=== PATIENT | female | born 1955 | race Caucasian/White ===

== ENCOUNTER 2022-01-16 10:26 | Outpatient (REF) | payer MEDICARE, SELFPAY ==
[2022-01-16 13:42] LABS: Estimated Average Glucose 171 mg/dL; Hemoglobin A1c % 7.6 %
== END 2022-01-16 10:27 | disposition home or self-care (01) ==
LOC: HO.MANLDS 10:26
PROVIDERS: PCP Internal Medicine; Visit Provider Internal Medicine
DX: E11.9 Type 2 diabetes mellitus without complications (principal)
CPT/HCPCS: 36415; 83036

== ENCOUNTER 2022-04-30 07:58 | Outpatient (REF) | payer MEDICARE, SELFPAY ==
[2022-04-30 11:37] LABS: Estimated Average Glucose 197 mg/dL; Hemoglobin A1c % 8.5 %
== END 2022-04-30 07:59 | disposition home or self-care (01) ==
LOC: HO.MANLDS 07:58
PROVIDERS: Visit Provider Internal Medicine
DX: E11.9 Type 2 diabetes mellitus without complications (principal)
CPT/HCPCS: 36415; 83036

== ENCOUNTER 2022-08-13 09:32 | Outpatient (REF) | payer MEDICARE, SELFPAY ==
[2022-08-13 11:48] LABS: Estimated Average Glucose 186 mg/dL; Hemoglobin A1c % 8.1 %
== END 2022-08-13 09:33 | disposition home or self-care (01) ==
LOC: HO.MANLDS 09:32
PROVIDERS: Visit Provider Internal Medicine
DX: E11.9 Type 2 diabetes mellitus without complications (principal)
CPT/HCPCS: 36415; 83036

== ENCOUNTER 2022-08-15 11:06 | Outpatient (REF) | payer MEDICARE, SELFPAY ==
[2022-08-15 14:25] LABS: Anion Gap 16 (12-20); Blood Urea Nitrogen 13 mg/dL (9-16); Calcium 9.5 mg/dL (8.4-10.2); Carbon Dioxide 27 mmol/L (22-29); Chloride 102 mmol/L (96-108); Estimated Glomerular Filt Rate 57; Glucose Random 225 mg/dL (60-115); Potassium 4.6 mmol/L (3.3-5.1); Sodium 140 mmol/L (135-145)
== END 2022-08-15 11:07 | disposition home or self-care (01) ==
LOC: HO.MANLDS 11:06
PROVIDERS: Visit Provider Internal Medicine
DX: I10 Essential (primary) hypertension (principal)
CPT/HCPCS: 36415; 80048

== ENCOUNTER 2022-09-17 09:37 | Outpatient (REF) | payer MEDICARE, SELFPAY ==
[2022-09-17 12:04] LABS: Estimated Average Glucose 171 mg/dL; Hemoglobin A1c % 7.6 %
[2022-09-17 12:09] LABS: Creatinine Urine 79.62 mg/dL; Microalbum/Creatinine Ratio Ur 12.5 ug/mg cr
[2022-09-17 12:23] LABS: Alanine Aminotransferase 25 U/L (0-31); Albumin Level 4.2 g/dL (3.5-5.0); Alkaline Phosphatase 62 U/L (39-117); Anion Gap 14 (12-20); Aspartate Amino Transferase 16 U/L (5-31); Bilirubin Total 1.3 mg/dL (0.0-1.0); Blood Urea Nitrogen 19 mg/dL (9-16); Calcium 9.6 mg/dL (8.4-10.2); Carbon Dioxide 27 mmol/L (22-29); Chloride 104 mmol/L (96-108); Cholesterol 289 mg/dL; Estimated Glomerular Filt Rate 58; Glucose Random 143 mg/dL (60-115); HDL Cholesterol 42 mg/dL; LDL Cholesterol Calculated 193 mg/dl; Potassium 4.6 mmol/L (3.3-5.1); Sodium 140 mmol/L (135-145); Triglycerides 274 mg/dL
== END 2022-09-17 09:38 | disposition home or self-care (01) ==
LOC: HO.MANLDS 09:37
PROVIDERS: Visit Provider Internal Medicine
DX: E11.9 Type 2 diabetes mellitus without complications (principal)
CPT/HCPCS: 36415; 80053; 80061; 82043; 83036

== ENCOUNTER 2022-12-07 09:51 | Outpatient (REF) | payer MEDICARE, SELFPAY ==
[2022-12-07 12:11] LABS: Estimated Average Glucose 197 mg/dL; Hemoglobin A1c % 8.5 %
== END 2022-12-07 09:52 | disposition home or self-care (01) ==
LOC: HO.MANLDS 09:51
PROVIDERS: Visit Provider Internal Medicine
DX: E11.9 Type 2 diabetes mellitus without complications (principal)
CPT/HCPCS: 36415; 83036

== ENCOUNTER 2023-03-13 10:11 | Outpatient (REF) | payer MEDICARE, SELFPAY ==
[2023-03-13 11:46] LABS: Estimated Average Glucose 154 mg/dL
[2023-03-13 12:29] LABS: Creatinine Urine 77.12 mg/dL; Microalbum/Creatinine Ratio Ur 10.3 ug/mg cr
[2023-03-13 12:44] LABS: Alanine Aminotransferase 21 U/L (0-31); Albumin Level 4.1 g/dL (3.5-5.0); Alkaline Phosphatase 56 U/L (39-117); Anion Gap 13 (12-20); Aspartate Amino Transferase 15 U/L (5-31); Bilirubin Total 1.3 mg/dL (0.0-1.0); Blood Urea Nitrogen 11 mg/dL (9-16); Calcium 9.3 mg/dL (8.4-10.2); Carbon Dioxide 27 mmol/L (22-29); Chloride 104 mmol/L (96-108); Estimated Glomerular Filt Rate 59; Glucose Random 119 mg/dL (60-115); Potassium 5.1 mmol/L (3.3-5.1); Sodium 139 mmol/L (135-145)
== END 2023-03-13 10:12 | disposition home or self-care (01) ==
LOC: HO.MANLDS 10:11
PROVIDERS: Visit Provider Internal Medicine
DX: E11.9 Type 2 diabetes mellitus without complications (principal)
CPT/HCPCS: 36415; 80053; 82043; 83036

== ENCOUNTER 2023-08-07 09:16 | Outpatient (REF) | payer MEDICARE, SELFPAY ==
[2023-08-07 14:09] LABS: Estimated Average Glucose 148 mg/dL; Hemoglobin A1c % 6.8 % (<6.0)
[2023-08-07 14:54] LABS: Alanine Aminotransferase 20 U/L (0-31); Albumin Level 4.2 g/dL (3.5-5.0); Alkaline Phosphatase 50 U/L (39-117); Anion Gap 13 (12-20); Aspartate Amino Transferase 20 U/L (5-31); Bilirubin Total 1.6 mg/dL (0.0-1.0); Blood Urea Nitrogen 13 mg/dL (9-16); Calcium 9.4 mg/dL (8.4-10.2); Carbon Dioxide 26 mmol/L (22-29); Chloride 103 mmol/L (96-108); Cholesterol 295 mg/dL (<200); Estimated Glomerular Filt Rate 53; Glucose Random 150 mg/dL (60-115); HDL Cholesterol 41 mg/dL (>40); LDL Cholesterol Calculated 201 mg/dL (<100); Potassium 4.3 mmol/L (3.3-5.1); Sodium 138 mmol/L (135-145); Total Protein 7.3 g/dL (6.5-8.0); Triglycerides 268 mg/dL (<150)
== END 2023-08-07 09:17 | disposition home or self-care (01) ==
LOC: HO.MANLDS 09:16
PROVIDERS: Visit Provider Internal Medicine
DX: E11.9 Type 2 diabetes mellitus without complications (principal)
CPT/HCPCS: 36415; 80053; 80061; 83036

== ENCOUNTER 2023-08-14 09:07 | Outpatient (REF) | payer MEDICARE, SELFPAY ==
--- NOTE | ~2023-08-14 | XR_ITS ---
EXAMINATION: XR SHOULDER, RIGHT CLINICAL INFORMATION: Pain in the right shoulder COMPARISON: None available. TECHNIQUE: AP external rotation, Grashey, scapular Y, and axillary views of the right shoulder. FINDINGS: There is no evidence of fracture dislocation in the right shoulder. Glenohumeral joint is preserved. There are mild changes of osteoarthritis in right acromioclavicular joint. Soft tissues are unremarkable. XR/XR shoulder RT min 2V IMPRESSION: Mild degenerative changes of the right acromioclavicular joint.
== END 2023-08-14 09:08 | disposition home or self-care (01) ==
LOC: HO.XRAY 09:07
PROVIDERS: PCP Internal Medicine; Visit Provider Internal Medicine
DX: M25.511 Pain in right shoulder (principal)
CPT/HCPCS: 73030

== ENCOUNTER 2023-11-15 07:59 | Outpatient (REF) | payer MEDICARE, SELFPAY ==
[2023-11-15 13:38] LABS: Estimated Average Glucose 171 mg/dL; Hemoglobin A1c % 7.6 % (<6.0)
== END 2023-11-15 08:00 | disposition home or self-care (01) ==
LOC: HO.MANLDS 07:59
PROVIDERS: Visit Provider Internal Medicine
DX: E11.9 Type 2 diabetes mellitus without complications (principal)
CPT/HCPCS: 36415; 83036

== ENCOUNTER 2024-02-17 08:26 | Outpatient (REF) | payer MEDICARE, SELFPAY ==
[2024-02-17 13:53] LABS: Alanine Aminotransferase 22 U/L (0-31); Albumin Level 4.1 g/dL (3.5-5.0); Alkaline Phosphatase 54 U/L (39-117); Anion Gap 12 (12-20); Aspartate Amino Transferase 16 U/L (5-31); Bilirubin Total 0.9 mg/dL (0.0-1.0); Blood Urea Nitrogen 11 mg/dL (9-16); Calcium 9.2 mg/dL (8.4-10.2); Carbon Dioxide 26 mmol/L (22-29); Chloride 104 mmol/L (96-108); Cholesterol 282 mg/dL (<200); Estimated Glomerular Filt Rate > 60; Glucose Random 215 mg/dL (60-115); HDL Cholesterol 40 mg/dL (>40); LDL Cholesterol Calculated 190 mg/dL (<100); Sodium 138 mmol/L (135-145); Total Protein 7.3 g/dL (6.5-8.0); Triglycerides 264 mg/dL (<150)
== END 2024-02-17 08:27 | disposition home or self-care (01) ==
LOC: HO.MANLDS 08:26
PROVIDERS: Visit Provider Internal Medicine
DX: E11.9 Type 2 diabetes mellitus without complications (principal)
CPT/HCPCS: 36415; 80053; 80061

== ENCOUNTER 2024-05-27 08:41 | Outpatient (REF) | payer MEDICARE, SELFPAY ==
[2024-05-27 14:09] LABS: Estimated Average Glucose 163 mg/dL; Hemoglobin A1c % 7.3 % (<6.0)
== END 2024-05-27 08:42 | disposition home or self-care (01) ==
LOC: HO.MANLDS 08:41
PROVIDERS: Visit Provider Internal Medicine
DX: E11.9 Type 2 diabetes mellitus without complications (principal)
CPT/HCPCS: 36415; 83036

== ENCOUNTER 2024-09-02 08:27 | Outpatient (REF) | payer MEDICARE, SELFPAY ==
[2024-09-02 14:18] LABS: Estimated Average Glucose 148 mg/dL; Hemoglobin A1C 285.8594 umol/L; Hemoglobin A1c % 6.8 % (<6.0); Total Hemoglobin (HGBA1C) 5657.8737 umol/L
== END 2024-09-02 08:28 | disposition home or self-care (01) ==
LOC: HO.MANLDS 08:27
PROVIDERS: Visit Provider Internal Medicine
DX: E11.9 Type 2 diabetes mellitus without complications (principal)
CPT/HCPCS: 36415; 83036

== ENCOUNTER 2024-12-28 07:54 | Outpatient (REF) | payer MEDICARE, SELFPAY ==
--- OUTSIDE RECORDS SUMMARY | 2024-12-28 07:59 | XMS_ITS | Data Portability ---
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 REVIEW OF PRIOR EXTERNAL NOTES/RESULTS, ORDERING OF TEST(S) CATEGORY 2. 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) MDM MODERATE MUST MEET 2 OUT OF 3 ELEMENTS: PROBLEMS, DATA OR RISK ELEMENT 1: PROBLEMS ADDRESSED 1 OR MORE CHRONIC ILLNESS WITH EXACERBATION OR 2 OR MORE STABLE CHRONIC ILLNESSES OR 1 UNDIAGNOSED NEW PROBLEM OR 1 ACUTE ILLNESS W/SYMPTOMS OR 1 ACUTE COMPLICATED INJURY ELEMENT 2: DATA MUST MEET 1 OF 3 CATEGORIES CATEGORY 1: REVIEW OF PRIOR EXTERNAL NOTES, REVIEW OF RESULTS, ORDERING OF EACH TEST, ASSESSMENT REQUIRING INDEPENDENT HISTORIAN OR CATEGORY 2: INDEPENDENT INTERPRETATION OF TESTS BY ANOTHER PHYSICIAN OR SPECIALIST OR CATEGORY 3: DISCUSSION OF MGT OR TEST INTERPRETATION W/EXTERNAL PHYSICIAN OR SPECIALIST ELEMENT 3: RISK RISK OF COMPLICATIONS AND/OR MORBIDITY OR MORTALITY OF PATIENT MANAGEMENT PROVIDER MUST THOROUGHLY DOCUMENT EACH ELEMENT THAT IS COVERED Not available 11/20/2023 10:19:57 02/21/2024 02/21/2024 [id number] [place] [id number]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 MODERATE MUST MEET 2 OUT OF 3 ELEMENTS: PROBLEMS, DATA OR RISK ELEMENT 1: PROBLEMS ADDRESSED 1 OR MORE CHRONIC ILLNESS WITH EXACERBATION OR 2 OR MORE STABLE CHRONIC ILLNESSES OR 1 UNDIAGNOSED NEW PROBLEM OR 1 ACUTE ILLNESS W/SYMPTOMS OR 1 ACUTE COMPLICATED INJURY ELEMENT 2: DATA MUST MEET 1 OF 3 CATEGORIES CATEGORY 1: REVIEW OF PRIOR EXTERNAL NOTES, REVIEW OF RESULTS, ORDERING OF EACH TEST, ASSESSMENT REQUIRING INDEPENDENT HISTORIAN OR CATEGORY 2: INDEPENDENT INTERPRETATION OF TESTS BY ANOTHER PHYSICIAN OR SPECIALIST OR CATEGORY 3: DISCUSSION OF MGT OR TEST INTERPRETATION W/EXTERNAL PHYSICIAN OR SPECIALIST ELEMENT 3: RISK RISK OF COMPLICATIONS AND/OR MORBIDITY OR MORTALITY OF PATIENT MANAGEMENT PROVIDER MUST THOROUGHLY DOCUMENT EACH ELEMENT THAT IS COVERED Not available 02/21/2024 10:27:47 06/01/2024 06/01/2024 [id number] [place] [id number]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 MODERATE MUST MEET 2 OUT OF 3 ELEMENTS: PROBLEMS, DATA OR RISK ELEMENT 1: PROBLEMS ADDRESSED 1 OR MORE CHRONIC ILLNESS WITH EXACERBATION OR 2 OR MORE STABLE CHRONIC ILLNESSES OR 1 UNDIAGNOSED NEW PROBLEM OR 1 ACUTE ILLNESS W/SYMPTOMS OR 1 ACUTE COMPLICATED INJURY ELEMENT 2: DATA MUST MEET 1 OF 3 CATEGORIES CATEGORY 1: REVIEW OF PRIOR EXTERNAL NOTES, REVIEW OF RESULTS, ORDERING OF EACH TEST, ASSESSMENT REQUIRING INDEPENDENT HISTORIAN OR CATEGORY 2: INDEPENDENT INTERPRETATION OF TESTS BY ANOTHER PHYSICIAN OR SPECIALIST OR CATEGORY 3: DISCUSSION OF MGT OR TEST INTERPRETATION W/EXTERNAL PHYSICIAN OR SPECIALIST ELEMENT 3: RISK RISK OF COMPLICATIONS AND/OR MORBIDITY OR MORTALITY OF PATIENT MANAGEMENT PROVIDER MUST THOROUGHLY DOCUMENT EACH ELEMENT THAT IS COVERED Not available 06/01/2024 10:31:40 09/07/2024 09/07/2024 [id number] [place] [id number]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 MODERATE MUST MEET 2 OUT OF 3 ELEMENTS: PROBLEMS, DATA OR RISK ELEMENT 1: PROBLEMS ADDRESSED 1 OR MORE CHRONIC ILLNESS WITH EXACERBATION OR 2 OR MORE STABLE CHRONIC ILLNESSES OR 1 UNDIAGNOSED NEW PROBLEM OR 1 ACUTE ILLNESS W/SYMPTOMS OR 1 ACUTE COMPLICATED INJURY ELEMENT 2: DATA MUST MEET 1 OF 3 CATEGORIES CATEGORY 1: REVIEW OF PRIOR EXTERNAL NOTES, REVIEW OF RESULTS, ORDERING OF EACH TEST, ASSESSMENT REQUIRING INDEPENDENT HISTORIAN OR CATEGORY 2: INDEPENDENT INTERPRETATION OF TESTS BY ANOTHER PHYSICIAN OR SPECIALIST OR CATEGORY 3: DISCUSSION OF MGT OR TEST INTERPRETATION W/EXTERNAL PHYSICIAN OR SPECIALIST ELEMENT 3: RISK RISK OF COMPLICATIONS AND/OR MORBIDITY OR MORTALITY OF PATIENT MANAGEMENT PROVIDER MUST THOROUGHLY DOCUMENT EACH ELEMENT THAT IS COVERED Not available 09/07/2024 11:11:19 Plan of Treatment Reminders Order Date Submit Date Provider Last Modified By Organization Details Last Modified Time Details Appointments FOLLOW UP 15 2024 12:00P M DR BOOKER Not available Not available Not available Lab hemoglobi n A1c, QN, blood 2023 024 [facility], [address] [place] [address], [address], 02/21/2024 10:39:56 CMP, serum or plasma 2022 023 [facility], [place], [address], 09/11/2023 11:48:47 CBC 2022 023 [facility], [place], [address], 09/11/2023 11:48:48 vitamin D, 25-hydrox y, total, serum 2022 023 [facility], [place], [address], 09/11/2023 11:48:48 HbA1c (hemoglob in A1c), blood 2022 023 [facility], [place], [address], 11/18/2023 11:12:13 lipid panel, blood 2022 023 [facility], [place], [address], 09/11/2023 11:48:48 CBC w/ auto diff 2022 023 [facility], [place], [address], 09/11/2023 11:48:[address] referral 2022 023 [facility], [address] [facility], [place], [address], 09/16/2023 09:02:00 Procedures None recorded. Surgeries None recorded. Imaging None recorded. Medication Orders Ventolin HFA 90 mcg/actua tion aerosol inhaler [address] [id number], [address], [place], [phone], 06/01/2024 10:30:39 triamtere ne 37.5 mg-hydroc hlorothia zide 25 mg tablet [address] [id number], [address], [place], [phone], 11/20/2023 10:22:10 oxycodone -acetamin ophen 5 mg-325 mg tablet 2022 023 [facility][id number], [address], [place], [phone], 11/20/2023 09:42:04 Patient TargetsNo targets recorded. Patient Instructions Encounter Date Encounter Id Patient Instructions Last Modified By Organization Details Last Modified Time 11/20/2023 [id number] pulse oximetry* Not available 11/20/2023 10:22:06 leg and ankle edema: care instructions Not available 11/20/2023 10:22:03 02/21/2024 [id number] pulse oximetry* Not available 02/21/2024 10:30:17 06/01/2024 [id number] leg and ankle edema: care instructions Not available 06/01/2024 10:30:27 learning about type 2 diabetes Not available 06/01/2024 10:30:27 type 2 diabetes: care instructions Not available 06/01/2024 10:30:26 chronic obstructive pulmonary disease (COPD): care instructions Not available 06/01/2024 10:30:26 learning about copd and how to prevent lung infections Not available 06/01/2024 10:30:27 09/07/2024 [id number] chronic obstructive pulmonary disease (COPD): care instructions [email or web address] Not available 09/07/2024 11:07:15 learning about copd and how to prevent lung infections Not available 09/07/2024 11:07:15 pulse oximetry* WALKER Not available 09/07/2024 11:20:47 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 Oswald ateral tinnitus Referring Physician: Gary Booker, Internal Medicine, Encounter Date: 09/11/2023 Results Created Date Observation Date Name Description Value Unit Range Abnormal Flag Note LastModifiedBy Organization Detail LastModifiedTime 08/12/2008/12/2023 pulse oxime try* Result 98% Not Available [facility] [address], [place], [address], 08/02/2023 09:04:20 11/20/19 24 11/20/2023 pulse oxime try* Result 95% Not Available [facility] [address], [place], [address], 11/15/2023 16:23:20 02/21/20 24 02/21/2024 pulse oxime try* Result 96% Not Available [facility] [address], [place], [address], 02/19/2024 12:19:03 09/07/20 24 09/07/2024 pulse oxime try* Result 97 Not Available [facility] [address] [facility] [address], [place], [address], 09/01/2024 10:47:03 08/15/20 23 08/14/2023 XR, ian chase, 2 or more view No observ ation record ed. [facility] (Medical Records) [address] [place], [address], 09/11/2023 11:33:32 Result Notes None recorded. Problems Name Problem SNOMED Code Status Onset Date Resolution Date Notes Provider Name and Address Organization Details Recorded Time Asthma 535378321 Active 2019 [facility] 0 09:04:12 Diabetes mellitus 08316707 Completed 201908/10/[address] [facility] Internal [facility] 0 09:04:26 Type 2 diabetes mellitus 03082063 Active 2019 [facility] 0 09:04:36 Allergic rhinitis 81899942 Active 2019 [facility] 0 09:04:53 Gastroes ophageal reflux disease 568676125 Active 2019 [facility] 0 09:05:01 Hyperlip idemia 24728861 Active [address] [facility] 0 09:05:20 Obesity 725389322 Active 2019 [facility] 0 09:10:16 Urolithi asis 01437914 Active 2019 [facility] 0 09:10:27 Knee pain Active [address] [facility] 0 09:10:39 Hyperten sive disorder 62984145 Active 2021 Gary Booker DO [address] [place] [address], [address], [facility] 2 14:38:39 Ganglion cyst of right hand 36387599647 9107 Active 2022 Gary Booker DO [address] [place] [address], [address], [facility] 3 10:18:31 Benign paroxysm al position al vertigo 212886606 Active 2022 Gary Booker, DO [address] [place] [address], [address], [facility] 3 11:41:30 Benign paroxysm al position al vertigo 059646168 Active 2022 Gary Booker, DO [address] [place] [address], [address], [facility] 3 11:46:15 Pain of right shoulder joint 00606449304 960599 Active 2022 Gary Booker, [address] [place] [address], [address], [facility] 3 11:49:52 Bilatera l tinnitus 15473712957 02 Active 2022 Gary Booker DO [address] [place] [address], [address], [facility] 3 11:36:01 Rupture of rotator cuff of right shoulder 57598619495 425956 Active 2022 Gary Booker DO [address] [place] [address], [address], [facility] 3 11:43:41 Neuropat hy due to diabetes mellitus 703345711 Active 2023 Gary Booker DO [address] [place] [address], [address], [facility] 4 10:19:50 Edema of lower extremit y 946703131 Active 2023 Gary Booker DO [address] [place] [address], [address], [facility] 4 10:20:19 Chronic obstruct vanessa pulmonar y disease 17021310 Active 2023 Gary Booker DO [address] [place] [address], [address], [facility] 4 10:30:17 Onychomy cosis of toenails 619813806 Active 2023 Gary Booker, DO [address] [facility], [place], [address], [facility] 4 11:04:45 Problem Notes None recorded. Procedures Surgical History Date Name Laterality Status Provider Name and Address Organization Details Recorded Time colonoscopy completed Lathaalessandra Lamar [facility] 08/10/2020 09:15:24 [facility]pal tunnel surgery [facility] 09:15:39 Imaging Results Imaging Date Name Status LastModified by Organiz ation Details LastModified Time 08/14/2023 XR, shoulder, 2 or more view completed [facility] (Medical Records) [address] [place] [address], [address], 09/11/2023 11:33:32 Procedure Notes None recorded. Medical Equipment None Reported. Allergies Allergen ID Allergen Name Allergen Category Reaction Reaction Severity Criticality Documentation Date Start Date Code Code System Note Provider Name and Address Organization Details Recorded Time 4136 lemon extract food anaphylax is Not available Not available 08/10/2020 48734 91 RxNorm Latha Lamar [facility] 0 09:11:12 4137 cultivate d mushroom extract food Not available Not available Not available 08/10/2020 70454 17 RxNorm Latha Arguetaicktiarra [facility] 0 09:11:26 4138 amitripty line medicatio n Not available Not available Not available 08/10/2020 704 RxNorm Latha Arguetaicktiarra [facility] 0 09:12:03 4139 atorvasta tin medicatio n Not available Not available Not available 08/10/2020 00392 RxNorm Latha Balicktiarra [facility] 0 09:12:13 4140 cromolyn medicatio n Not available Not available Not available 08/10/2020 23484 RxNorm Latha Balicki fred, [facility] Internal [facility] 0 09:12:22 4141 Flovent medicatio n Not available Not available Not available 08/10/2020 65041 2 RxNorm Latha Kendallicki null, [facility] 0 09:12:31 4142 hyoscyami ne medicatio n Not available Not available Not available 08/10/2020 27314 0 RxNorm Lathaalessandra Arguetaicki fred, [facility] 0 09:12:43 4143 pravastat in medicatio n Not available Not available Not available 08/10/2020 58448 Rx[facility] 0 09:12:53 4144 Pulmicort medicatio n Not available Not available Not available 08/10/2020 37557 7 [facility] 0 09:13:02 4145 Substance with sulfonami de structure and antibacte rial mechanism of action (substanc e) medicatio n Not available Not available Not available 08/10/2020 65311 8003 [facility]ED [facility] 0 09:13:09 4146 theophyll ine medicatio n Not available Not available Not available 08/10/2020 17840 RxNorm [facility] 0 09:13:17 4147 Zetia medicatio n Not available Not available Not available 08/10/2020 88593 9 RxNorm Latha Kendallicki fred, [facility] Internal [facility] 0 09:13:27 Medications Name Sig Start Date Stop Date Status Note LastModified by Organization Details LastModified Time Prescriptio n - Prior Authorizati on Request 06/01 completed Not Available Not Available Not Available Singulair 10 mg tablet TAKE 1 TABLET BY MOUTH EVERY DAY active Not Available Not Available No t Available azithromyci n 250 mg tablet TAKE 2 TABLETS (500 MG) BY ORAL ROUTE ONCE DAILY FOR 1 DAY THEN 1 TABLET (250 MG) BY ORAL ROUTE ONCE DAILY FOR 4 DAYS 12/11 completed Not Available Not Available Not Available glipizide 10 mg tablet TAKE 1 TABLET BY MOUTH EVERY DAY active Not Available Not Available No t Available meclizine 12.5 mg tablet TAKE 1 TABLET BY MOUTH THREE TIMES DAILY FOR 10 DAYS NEEDED active Not Available Not Available No t Available aspirin 81 mg tablet,cee yed release TAKE 1 TABLET BY MOUTH ONCE A DAY FOR 2 WEEKS POST SURGERY active Not Available Not Available No t Available tramadol 50 mg tablet TAKE 1 TABLET BY MOUTH EVERY 6 HOURS FOR 7 DAYS NEEDED FOR SHOULDER PAIN active Not Available Not Available No t Available meloxicam 7.5 mg tablet 11/20 completed Not Available Not Available Not Available oxycodone-a cetaminophe n 5 mg-325 mg tablet TAKE 1 TABLET BY MOUTH TWICE DAILY FOR 7 DAYS NEEDED 11/20 completed Not Available Not Available Not Available metformin 1,000 mg tablet TAKE 2 TABLETS BY MOUTH EVERY MORNING THEN TAKE 1 TABLET BY MOUTH IN THE AFTERNOON 01/12 completed Not Available Not Available Not Available triamterene 37.5 mg-hydrochl orothiazide 25 mg tablet TAKE 1 TABLET BY MOUTH EVERY DAY active Not Available Not Available No t Available methylpredn isolone 4 mg tablets in a dose pack FOLLOW PACKAGE DIRECTION S 12/11 completed Not Available Not Available Not Available Ventolin HFA 90 mcg/actuati on aerosol inhaler INHALE 2 PUFFS BY MOUTH EVERY 4 HOURS NEEDED active Not Available Not Available No t Available oxycodone 5 mg tablet TAKE 1 TABLET BY MOUTH EVERY [address] WHILE TAKING THIS MEDICATIO N 06/01 completed Not Available Not Available Not Available Januvia 25 mg tablet TAKE 1 TABLET BY MOUTH EVERY DAY active Not Available Not Available No t Available Trulicity 1.5 mg/0.5 mL subcutaneou s pen injector ADMINISTE R 3 MG UNDER THE SKIN EVERY WEEK 06/01 completed Not Available Not Available Not Available Trulicity 0.75 mg/0.5 mL subcutaneou s pen injector ADMINISTE R 0.75 MG UNDER THE SKIN EVERY WEEK 05/04 completed Not Available Not Available Not Available Trulicity 3 mg/0.5 mL subcutaneou s pen injector ADMINISTE R 3 MG UNDER THE SKIN EVERY WEEK active Not Available Not Available No t Available Vitals Date Recorded Body height Heart rate Oxygen saturation Oxygen saturation in Arterial blood by Pulse oximetry Systolic blood pressure Diastolic blood pressure Provider Name and Address Organization Details Last Updated DateTime 4 157.48 cm 77 /min 95 % 95 % 156 mm[Hg] 86 mm[Hg] Gary ToshaNatacha Booker, DO [address] [place], [address], [facility] 4 09:40:42 Date Recorded Body height Body mass index (BMI) Body weight Heart rate Oxygen saturation Oxygen saturation in Arterial blood by Pulse oximetry Systolic blood pressure Diastolic blood pressure Provider Name and Address Organization Details Last Updated DateTime 4 157.48 cm 37.3 kg/m2 29826.3 1 g 70 /min 96 % 96 % 120 mm[Hg] 80 mm[Hg] Lula Riley [facility] 4 10:04:00 Date Recorded Body height Body mass index (BMI) Body weight Heart rate Oxygen saturation Oxygen saturation in Arterial blood by Pulse oximetry Systolic blood pressure Diastolic blood pressure Provider Name and Address Organization Details Last Updated DateTime 4 157.48 cm 36.7 kg/m2 94575.2 7 g 82 /min 97 % 97 % 142 mm[Hg] 80 mm[Hg] Favian Frederick [facility] 4 10:09:15 Date Recorded Body height Body mass index (BMI) Body weight Heart rate Oxygen saturation Oxygen saturation in Arterial blood by Pulse oximetry Systolic blood pressure Diastolic blood pressure Provider Name and Address Organization Details Last Updated DateTime 4 157.48 cm 36.9 kg/m2 59118.6 6 g 83 /min 97 % 97 % 154 mm[Hg] 70 mm[Hg] Lula Riley [facility] 4 10:44:29 Date Recorded Systolic blood pressure Diastolic blood pressure Provider Name and Address Organization Details Last Updated DateTime 09/07/2024 138 mm[Hg] 72 mm[Hg] Gary Booker, DO [address] [place], [address], [facility] 09/07/2024 11:11:07 Social History Question Answer Notes LastModified by Organizat ion Details LastModified Time Tobacco Smoking Status Never Smoker Latha Arguetawolf [facility] 08/10/2020 09:13:50 What Was The Date Of Your Most Recent Tobacco Screening? 09/07/2024 [email or web address] Information not available 09/07/2024 Do You Or Have You Ever Used Any Other Forms Of Tobacco Or Nicotine? No [email or web address] Information not available 04/30/2022 Sex: Unknown Functional Status None recorded. Mental Status None recorded. Family History Relationship Description Onset Age of this Age Resolved Age Notes LastModified by Organization Details LastModified Time Sister Malignant neoplastic disease [email or web address] Not available 2019 09:14:02 Sister Diabetes mellitus [email or web address] Not available 2019 09:14:14 Sister Hypertensive disorder tbalicki Not available 2019 09:14:35 Sister Leukemia 66 [email or web address] Not available 1 10:15:55 Brother Hypertensive disorder tbalicki Not available 2019 09:14:35 Brother Diabetes mellitus tbalicki Not available 2019 09:14:44 Medical History No medical history recorded. Gynecological HistoryNo gynecological history recorded. Obstetrics History GPAL:G 0 P 0 0 0 0 Past Encounters Encounter ID Performer Location Encounter Start Date Encounter Closed Date Diagnosis/Indication Diagnosis SNOMED-CT Code Diagnosis ICD10 Code Diagnosis Note [id number] KULDEEP CORREA [facility] Internal [facility] [address],[place] [address] 08/12/2020 09:55:27 08/12/2020 10:43:37 Asthma 495378843 J45.909 stable Type 2 deborah betes mellitus 03610166 E11.9 will check BW as she is due, need to see if medication s need to be adjusted Hyperlipidemia 31741789 E78.5 needs Bw check, has not had Bw checked in a few years [id number] KULDEEP CORREA [facility] [address],[place] [address] 01/04/2021 09:28:17 01/04/2021 10:18:34 Asthma 190049392 J45.909 stable no interventi on needed at this time Type 2 deborah betes mellitus 07905091 E11.9 will check BW as she is due, need to see if medication s need to be adjusted Neuropathy due to diabetes mellitus 646474583 E13.40 mild intermitte nt diarrhea Diarrhea 58217587 R19.7 the patient refused any interventi ons at this time [id number] KULDEEP CORREA [facility] Medicine [address] [facility] [address] [address] 04/07/2021 09:40:40 04/07/2021 10:06:56 Type 2 diabetes mellitus 45825198 E11.9 will check BW as she is due, need to see if medication s need to be adjusted Loss of hair 525667155 L 65.9 discussed with patientnot interested in additional lab worktold her she could use a supplement [id number] KULDEEP CORREA [facility] Internal Medicine [address],[place] [address] 07/12/2021 08:11:15 07/12/2021 11:49:24 Type 2 diabetes mellitus 86630517 E11.9 will recheck in 3 mowill talk to her sister about januvia which she uncertain she wants to takewill switch out the metformin due to diarrheawi ll adjust medication [id number] Gary Booker DO [facility] Internal Medicine [address],[place] [address] 01/12/2022 14:19:53 01/12/2022 16:17:06 Asthma 181373568 J45.909 Gastroesop hageal reflux disease 725991897 K21.9 Type 2 deborah josselin mellitus 26956694 E11.9 needs a1c done NOTE she has had noted side effects from the metformin namdely the diarrhea and also her foot pain stoppipng the metformin stopped the foot apin this is not a neuropathy !!!! Osteopenia 902375093 M85 .80 will need bone scan Metformin adverse reaction 706348785 T38.3X5A this is not her diabetes this is from the metformin side effect !!!! [id number] Gary Booker DO [facility] Internal Medicine [address],[place] [address] 04/30/2022 10:39:23 04/30/2022 14:12:40 Hypertensive disorder 06562708 I10 seems to be stable and is doing ok Asthma 329196214 J45.90 9 had a hard time with the pollen Type 2 deborah betes mellitus 86253359 E11.9 just had a1c drawn so is pending if increased we willconsid er increasing glip or trulicity but not going back to metformin Active or passive immunization 746172190 Z23 patient advised she is due for tdap, pneu 13 & 23, & shingles) Osteopenia 872811361 M85 .80 will need bone scan Advance care planning 71 3386317 Z71.89 done Depression screening 171 441408 Z13.31 PHQ-9 score of 4 [id number] Gary Booker [facility] Internal Medicine [address],[place] [place] [address] 08/15/2022 10:04:33 08/15/2022 12:18:36 Hypertensive disorder [id number] I10 seems to be stable and is doing ok Asthma 494679710 J45.90 9 had a hard time with the pollen Gastroesop hageal reflux disease 130568843 K21.9 Type 2 deborah betes mellitus 63777475 E11.9 just had a1c drawn so is pending if increased we will consider increasing glip or trulicity but not going back to metformin Screening mammography 24 928340 Z12.31 Advance care planning 71 5471072 Z71.89 done Osteopenia 837072663 M85 .80 will need bone scan [id number] Gary Booker [facility] Internal Medicine [address] [facility],[place] [address] 12/11/2022 09:41:42 12/11/2022 14:03:47 Hypertensive disorder 59542522 I10 seems to be stable and is doing ok Asthma 835084689 J45.90 9 had a hard time with the pollen Gastroesop hageal reflux disease 883857931 K21.9 stable Type 2 deborah betes mellitus 42353114 E11.9 just had a1c drawn so is pending if increased we will consider increasing glip or trulicity but not going back to metformint old her she needs to get diet back on trackhavin g her try to eat bettertold her that will try to get higher dose trulicity Allergic rhinitis 683235 04 J30.9 will have her use an iotc but she has had issues with puylmicort ....told to stop nasal decongest daily use due to rebound Ganglion c yst of right hand [id number] 61750 M67.441 will refer for hand surg [id number] Gary Booker [facility] Internal Medicine [address] [facility],[place] [address] 05/07/2023 14:43:59 05/07/2023 16:02:23 Hypertensive disorder 22275737 I10 seems to be stable and is doing ok Asthma 167441231 J45.90 9 had a hard time with the pollen and smoke from hedy Gastroesop hageal reflux disease 431203345 K21.9 stable Type 2 deborah betes mellitus 10361926 E11.9 just had a1c is 7told her she needs to get diet back on trackhavin g her try to eat better Advance care planning 71 8471965 Z71.89 done [id number] Gary Booker [facility] Internal Medicine [address] [facility],[place] [address] 08/12/2023 10:56:18 08/12/2023 12:26:24 Hypertensive disorder 65367483 I10 seems to be stable and is doing ok Asthma 005587004 J45.90 9 had a hard time with the pollen and smoke from [place] Hyperlipidemia 30835928 E78.5 still elevated and is unfortunat odalys stuck with it as she tolerated none of the meds Type 2 deborah betes mellitus 63100461 E11.9 just had a1c is now 6.8 was 7doing ok overall now Benign par oxysmal positional vertigo 432355726 H81.11 we will treat her ears with meclizine and flonase Pain of ri ght shoulder joint [id number] 3837206 M25.511 will get xr and then decide mri or dr hickey [id number] Gary Booker [facility] Internal Medicine [address] [facility] [address],[place] [address] 09/11/2023 08:16:25 09/11/2023 11:48:18 Hypertensive disorder 05566703 I10 seems to be stable and is doing ok Hyperlipidemia 73354376 E78.5 still elevated and is unfortunat odalys stuck with it as she tolerated none of the meds Type 2 deborah betes mellitus 80098420 E11.9 just had a1c is now 6.8 was 7doing ok overall now Bilateral tinnitus 41715 33293 102 H93.13 Asthma 898128431 J45.90 9 doing ok Rupture of rotator cuff of right shoulder [id number] 8061289 M75.101 will provide pain med for night time [id number] Gary Booker [facility] Internal Medicine [address] [facility] [address],[place] [facility] [place] [address] 11/20/2023 09:36:56 11/20/2023 10:25:58 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 seems about the same Asthma 048657438 J45.90 9 doing ok Hyperlipidemia 73091702 E78.5 still elevated and is unfortunat odalys stuck with it as she tolerated none of the meds Type 2 deborah betes mellitus 13396172 E11.9 just had a1c is now 7.6 since recent surgery 6.8 was 7doing ok overall now Hypertensive disorder 38 828170 I10 seems to be stable and is doing ok Edema of l ower extremity 366644891 R60.0 will try and diurese her as it is significan t edema [id number] Gary Booker [facility] Internal Medicine [address] [facility] [address],[place] [address] 02/21/2024 09:54:20 02/21/2024 15:43:32 Asthma 899223043 J45.909 doing ok Type 2 deborah betes mellitus 08179004 E11.9 just had a1c is not known now as it was not done by lab draw for reasons but fbw was 215 was 7.6 since recent surgery 6.8 was 7doing ok overall nowso we will chnge the eltonia to eldadiance 10 and see pt in 2 months Chronic ob structive pulmonary disease 48612156 J44.9 stable Hypertensive disorder 38 386163 I10 seems to be stable and is doing ok [id number] Gary Booker [facility] Internal Medicine [address] [facility] [address],[place] [address] 06/01/2024 10:01:45 06/01/2024 11:12:09 Depression screening 113430276 Z13.31 PHQ-9 score of 4 Hypertensive disorder 38 230607 I10 seems to be stable and is doing ok Chronic ob structive pulmonary disease 89005052 J44.9 stable Edema of l ower extremity 822595017 R60.0 will try and diurese her as it is significan t edema Type 2 deborah betes mellitus 19978619 E11.9 just had a1c is not known now as it was not done by lab draw for reasons but fbw was 215 was 7.6 since recent surgery 6.8 was 7doing ok overall nowso we will chnge the januvia to jardiance 10 and see pt in 2 months [id number] Gary Booker DO [facility] Internal Medicine [address] [facility] [address],[place] [facility] [address] 09/07/2024 10:34:46 09/07/2024 11:17:21 Chronic obstructive pulmonary disease 29339870 J44.9 stable Hypertensive disorder 38 567675 I10 seems to be stable and is doing ok Type 2 deborah betes mellitus 67435093 E11.9 just had a1c is now as it was 6.8 but fbw was 215 was 7.6 since rece6.8nt surgery was 7doing ok overall nowso we will chnge the januvia to jardiance 10 and see pt in 3 months Onychomyco sis of toenails 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 Health Concerns Section Related Observation LastModified by Organization Detai ls LastModified Time None Recorded Concern Status LastModified by Organization Details LastModified Time None Recorded Advance Directives Directive None Recorded Payers Encounter Date Sequence Insurance Name Policy Number Policy Christianson Covered Member ID Christianson Member ID Guarantor Name 09/11/2023 1 [place] Skylar Cuadra [id number] Skylar Cuadra 09/11/2023 2 [place] [id number] Skylar Cuadra [id number] Skylar Powertte 11/20/2023 1 [place] Skylar Cuadra [id number] Skylar Powertte 11/20/2023 2 [place] [id number] Skylar Powerkedare [id number] Skylar Powertte 02/21/2024 1 [place] Skylar Quinteroe [id number] Skylar Wongyette 02/21/2024 2 [place] [id number] Skylar Powertte [id number] Syklar Powertte 06/01/2024 1 [place] Skylar Cuadra [id number] Skylar Wongyette 06/01/2024 2 [place] [id number] Skylar Powertte [id number] Skylar Wongyette 09/07/2024 1 [place] Skylar Cuadra [id number] Skylar Wongyette 09/07/2024 2 [place] [id number] Skylar Powertte [id number] Skylar Powermati Notes Date Note Type Note Provider Name and Address Organization Details Recorded Time 3 text/htm l Care Management - HypertensionReported bypatient.Self Care:not under emotional stress Severity:symptoms are improving; does not interfere with daily activities Associated Symptoms:no dizziness; no lightheadedness; no chest pain; no shortness of breath; no palpitations; no edema; no calf muscle cramps; no blurred vision; no confusion; no headaches; no fatigue patient is evaluated via tele/video assessment per patient consentduring current pandemic still having tinnitus a buzzing feeling still occurs but the dizziness is betterrelates that her shoulder is still very sore and dr lemus feels she needs surg for the rotator cuffshe has an MRI tonight Gary Booker DO [address] [place], [address], [facility] Internal Medicine 09/11/2023 11:47:44 4 text/htm l Care Management - DiabetesReported bypatient.Self Care:seeing eye doctor yearly for dilated eye exam; checking feet regularly; normal range of home blood sugars (in the low 100s); no side effects from medications Associated Symptoms:symptoms are usually well controlled; no fatigue; no dizziness; no excessive sweating; no headaches; no confusion; no increased thirst; no increased appetite; no increased urination; no blurred vision; no numbness of feet; no calluses on feet here for rechk and she is still very uncomfortable with her left shoulder pain from surgeryrelates her shoulder tear revealed a partial tear at surgery but full thicknesswill be doing PT on the [id number] is 7.6 uriel[ote being off her meds mult times for surgery etc and also for stress of surgery Gary Booker DO [address] [place], [address], [facility] Medicine 11/20/2023 10:22:46 4 text/htm l Care Management - DiabetesReported bypatient.Self Care:seeing eye doctor yearly for dilated eye exam; checking feet regularly; normal range of home blood sugars (in the low 100s); no side effects from medications Associated Symptoms:symptoms are usually well controlled; no fatigue; no dizziness; no excessive sweating; no headaches; no confusion; no increased thirst; no increased appetite; no increased urination; no blurred vision; no numbness of feet; no calluses on feet here for a rechkhad her right shoulder surgery for rotator cuffso she will be starting strengthening exercisesrelates has not been good with her diet however\relates that she hasd a hard time getting [id number] was not done!!reviewed all her other lab Gary Booker DO [address] [place], [address], [facility] Internal Medicine 02/21/2024 10:35:30 4 text/htm l Care Management - DiabetesReported bypatient.Self Care:seeing eye doctor yearly for dilated eye exam; checking feet regularly; normal range of home blood sugars (in the low 100s); no side effects from medications Associated Symptoms:symptoms are usually well controlled; no fatigue; no dizziness; no excessive sweating; no headaches; no confusion; no increased thirst; no increased appetite; no increased urination; no blurred vision; no numbness of feet; no calluses on feetCare Management - HypertensionReported bypatient.Self Care:not under emotional stress Severity:symptoms are improving; does not interfere with daily activities Associated Symptoms:no dizziness; no lightheadedness; no chest pain; no shortness of breath; no palpitations; no edema; no calf muscle cramps; no blurred vision; no confusion; no headaches; no fatigue here for rechk and is doing okrelates the jardiance caused pain in soles of feethas restarted the januvia over the past monthusing the albuterol and every day during the humidity and used it once a daybut now doing better a1c is 7.2 was 7.6 Gary Booker DO [address] [place], [address], [facility] Medicine 06/01/2024 10:36:19 4 text/htm l Care Management - DiabetesReported bypatient.Self Care:seeing eye doctor yearly for dilated eye exam; checking feet regularly; normal range of home blood sugars (in the low 100s); no side effects from medications Associated Symptoms:symptoms are usually well controlled; no fatigue; no dizziness; no excessive sweating; no headaches; no confusion; no increased thirst; no increased appetite; no increased urination; no blurred vision; no numbness of feet; no calluses on feetCare Management - HypertensionReported bypatient.Self Care:not under emotional stress Severity:symptoms are improving; does not interfere with daily activities Associated Symptoms:no dizziness; no lightheadedness; no chest pain; no shortness of breath; no palpitations; no edema; no calf muscle cramps; no blurred vision; no confusion; no headaches; no fatigue here for rechk and is doing ok overallrelates frustrated with her weightrelates no cp no sob Gary Booker DO [address] [facility], [place], [address], [facility] 09/07/2024 11:11:31 OBGyn Episode No OBEpisode recorded.
[2024-12-28 13:41] LABS: Estimated Average Glucose 192 mg/dL; Hemoglobin A1c % 8.3 % (<6.0)
== END 2024-12-28 07:55 | disposition home or self-care (01) ==
LOC: HO.MANLDS 07:54
PROVIDERS: Visit Provider Internal Medicine
DX: E11.9 Type 2 diabetes mellitus without complications (principal)
CPT/HCPCS: 36415; 83036

== ENCOUNTER 2025-03-10 09:30 | Outpatient (RCR) | payer MEDICARE, SELFPAY ==
--- NOTE | 2025-03-10 09:58 | MHC.OT.DC ---
[address] [phone] F: [phone] Occupational Therapy Discharge Note Patient Name: Skylar Cuadra Provider: Yelena Verdin Diagnosis: R Trigger Finger RF Date of Surgery: Date of Evaluation: 01/28/25 Date of Discharge: Treatments to Date: 11 Cancellations to Date: No Shows to Date: Discharge Status: Recommend MD Follow-up Discharge Summary: Pt is being d/charged today, she is in agreement. She reported increased triggering since her last appt (we had been progressing in recent weeks). She has a follow up w/ the MD 03/25/25 and we discussed her talking to the MD about other options Electronically Signed By: Lawanda Saldivar OTR/L Reviewed/agree with student documentation: Therapist: Please Sign and return to therapist, thank you for your referral.
== END 2025-03-10 09:58 | disposition home or self-care (01) ==
LOC: HO.OT 09:30
PROVIDERS: PCP Internal Medicine; Visit Provider Physician Assistant
DX: M65.30 Trigger finger, unspecified finger (principal)
CPT/HCPCS: 97035; 97140; 97165; 97535; 97760

== ENCOUNTER 2025-03-30 07:34 | Outpatient (REF) | payer MEDICARE, SELFPAY ==
[2025-03-30 13:50] LABS: Estimated Average Glucose 194 mg/dL; Hemoglobin A1c % 8.4 % (<6.0); Total Hemoglobin (HGBA1C) 3466.4692 umol/L
[2025-03-30 14:03] LABS: Alanine Aminotransferase 29 U/L (0-31); Albumin Level 4.1 g/dL (3.5-5.0); Alkaline Phosphatase 59 U/L (39-117); Anion Gap 10 (12-20); Aspartate Amino Transferase 26 U/L (5-31); Bilirubin Total 0.8 mg/dL (0.0-1.0); Blood Urea Nitrogen 11 mg/dL (9-16); Carbon Dioxide 29 mmol/L (22-29); Chloride 105 mmol/L (96-108); Cholesterol 273 mg/dL (<200); Estimated Glomerular Filt Rate 51; Glucose Fasting 173 mg/dL (60-99); HDL Cholesterol 38 mg/dL (>40); LDL Cholesterol Calculated 176 mg/dL (<100); Potassium 4.7 mmol/L (3.3-5.1); Sodium 139 mmol/L (135-145); Total Protein 6.8 g/dL (6.5-8.0); Triglycerides 298 mg/dL (<150)
== END 2025-03-30 07:35 | disposition home or self-care (01) ==
LOC: HO.MANLDS 07:34
PROVIDERS: Visit Provider Internal Medicine
DX: E11.9 Type 2 diabetes mellitus without complications (principal)
CPT/HCPCS: 36415; 80053; 80061; 83036

== ENCOUNTER 2025-06-01 07:41 | Outpatient (REF) | payer MEDICARE, SELFPAY ==
--- OUTSIDE RECORDS SUMMARY | 2025-06-01 07:43 | XMS_ITS | Clinical Summary ---
Author Organization [address] [place] [address] Address [address] [place] [address] Phone Care Team Providers Care Pharmaceutical Process Engineer Name Role Phone Gary Yu DO Primary Care Provider [phone] Allergies No known active allergies Medications Trulicity 3 mg/0.5 mL pen injector injection 0.5 mL (3 mg total). 02/26/2025 Active glipiZIDE (GLUCOTROL) 10 mg tablet Take 1 tablet (10 mg total) by mouth daily. 11/25/2019 Active Januvia 25 mg tablet Take 1 tablet (25 mg total) by mouth 1 (one) time each day. 03/03/2025 Active Singulair 10 mg tablet Take 1 tablet (10 mg total) by mouth 1 (one) time each day. Active aspirin 81 mg EC tablet 1 tablet Active Ventolin HFA 90 mcg/actuation inhaler Inhale 2 puffs by mouth every 4 (four) hours. Active Encounters Date Type Department Care Team Description 03/25/2025 8:00 AM EDT Office Visit Orthopedic Surgery - [address] [place] [address] Yelena Verdin PA Trigger finger, acquired (Primary Dx); Dupuytren's contracture from Last 3 Months Surgical History Surgery Date Site/Laterality Comments ROTATOR CUFF REPAIR 10/21/2023 - 10/20/2024 Right w/ bicep tendon repair CARPAL TUNNEL RELEASE Bilateral Social History Tobacco Use Types Packs/Day Years Used Date Smoking Tobacco: Never Assessed Comments Unknown Sex and Gender Information Value Date Recorded Sex Assigned at Not on file Legal Sex Female 2:37 PM EDT Gender Identity Not on file Sexual Orientation Not on file Obstetrics History Last Filed Vital Signs Vital Sign Reading Time Taken Comments Blood Pressure - - Pulse - - Temperature - - Respiratory Rate - - Oxygen Saturation - - Inhaled Oxygen Concentration - - Weight 90.7 kg (200 lb) 03/25/2025 8:15 AM EDT Height 157.5 cm (5' 2 ) 03/25/2025 8:15 AM EDT Body Mass Index 36.58 03/25/2025 8:15 AM EDT Plan of Treatment Health Maintenance Due Date Last Done Comments Breast Cancer Screening 1955 Diabetes: Annual Foot Exam 1965 Diabetes: Annual Retina Eye Exam 1965 Pneumococcal Vaccine: 50+ Years (1 of 2 - PCV) 1974 Zoster Vaccines (1 of 2) 2005 RSV Immunization Adult Patients (1 - Risk 60-74 years 1-dose series) 2015 Diabetes: Annual GFR (Glomerular Filtration Rate) 07/10/2022 07/10/2021, 04/07/2021, 08/15/2020, Additional history exists COVID-19 Vaccine ( - season) 2024 Depression Screening 10/21/2024 DTaP,Tdap,and Td Vaccines (3 - Td or Tdap) 11/05/2024 11/05/2014, 10/21/2005 Colorectal Cancer Screening: Colonoscopy 01/18/2025 Falls Risk Assessment 01/18/2025 Hepatitis C Screening 01/18/2025 Medicare Annual Wellness Visit 01/18/2025 Osteoporosis Screening (Bone Density Screening) 01/18/2025 Social Influencers of Health Screening 01/18/2025 Diabetes: Annual Urine Albumin-Creatinine Ratio (uACR) 01/22/2025 Diabetes: Blood Sugar Control Test (HGBA1C) 01/22/2025 Influenza Vaccine (#1) 2025 11/13/2012, 2011 Cholesterol Screening (Lipid Panel) 08/15/2025 08/15/2020 HIB Vaccines Aged Out No longer eligi ble based on patient's age to complete this topic HPV Vaccines Aged Out No longer eligi ble based on patient's age to complete this topic Hepatitis A Vaccines Aged Out No long er eligible based on patient's age to complete this topic Hepatitis B Vaccines Aged Out No long er eligible based on patient's age to complete this topic IPV Vaccines Aged Out No longer eligi ble based on patient's age to complete this topic MMR Vaccines Aged Out No longer eligi ble based on patient's age to complete this topic Meningococcal ACWY Vaccine Aged Out N o longer eligible based on patient's age to complete this topic Meningococcal B Vaccine Aged Out No l onger eligible based on patient's age to complete this topic RSV Immunization Patients Under 20 months Aged Out No longer eligible based on patient's age to complete this topic Varicella Vaccines Aged Out No longer eligible based on patient's age to complete this topic Insurance MEDICARE [facility] Care Teams Pharmaceutical Process Engineer Relationship Specialty Start Date End Date Gary Yu DO [address] [place] [address] PCP - General Internal Medicine 01/18/25
--- OUTSIDE RECORDS SUMMARY | 2025-06-01 07:43 | XMS_ITS | Encounter Summary ---
Author Organization [facility] Address [address] [place], [place] [address] [place] [address] Phone Care Team Providers Care School Coordinator Name Role Phone Gary Yu DO Primary Care Provider [phone] Encounter Details Date Type Department Care Team ([facility] st Contact Info) Description 08/15/2022 Transcribe Orders Virtual Department [address] [place] [address] Gary Yu DO [address] [place] [address] [email or web address] Breast screening (Primary Dx) Social History Tobacco Use Types Packs/Day Years Used Date Smoking Tobacco: Never Smokeless Tobacco: Never Alcohol Use Standard Drinks/Week Comments No 0 (1 standard drink = 0.6 oz pur e alcohol) Comments No Sex and Gender Information Value Date Recorded Sex Assigned at Not on file Legal Sex Female 9:55 PM EDT Gender Identity Not on file Sexual Orientation Not on file 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 Not on file Not on file documented as of this encounter Plan of Treatment Not on file documented as of this encounter Visit Diagnoses Diagnosis Breast screening- Primary Breast screening, unspecified documented in this encounter Additional Health Concerns Assessment Noted Time PHQ-2 Depression Total Score: 2 12/13/19 18 1:44 PM EST documented as of this encounter Care Teams School Coordinator Relationship Specialty Start Date End Date Gary Yu DO [email or web address] PCP - General Internal Medicine 05/26/20 documented as of this encounter Additional Source Comments The information contained in this document represents components of the legal health record. It is not the complete legal health record.[facility]
[2025-06-01 13:55] LABS: Hemoglobin A1C 256.1712 umol/L; Total Hemoglobin (HGBA1C) 4353.5524 umol/L
== END 2025-06-01 07:42 | disposition home or self-care (01) ==
LOC: HO.MANLDS 07:41
PROVIDERS: Visit Provider Internal Medicine
DX: E11.9 Type 2 diabetes mellitus without complications (principal)
CPT/HCPCS: 36415; 83036

== ENCOUNTER 2025-06-26 22:31 | Inpatient (IN) | payer MEDICARE, SELFPAY ==
--- NOTE | 2025-06-26 | ECG_ITS ---
Test Reason : CP Blood Pressure : */* mmHG Vent. Rate : 90 BPM Atrial Rate : 90 BPM P-R Int : 144 ms QRS Dur : 82 ms QT Int : 370 ms P-R-T Axes : 25 37 56 degrees QTcB Int : 452 ms Normal sinus rhythm Cannot rule out Anterior infarct , age undetermined Abnormal ECG No previous ECGs available Referred By: Generic ED Physician Electronically Signed By: CIRILO SPENCER MD
[2025-06-26 22:38] VITALS: BP 186/97; PULSE 93; RESP 24; TEMP 36.6; O2SAT 100; BMI 33.6
[2025-06-26 22:52] LABS: Hematocrit 40.9 % (37.0-47.0); Hemoglobin 14.2 g/dl (12.0-16.0); Imm Gran Abs Auto 0.02 X10*3/uL (0.00-0.03); Imm Gran Pct Auto 0.3 % (0.0-0.4); Lymphocytes Absolute Auto 2.4 X10*3/uL (1.2-4.9); MANUAL DIFF FLAG NO; Mean Corpuscular HGB Conc 34.7 g/dl (31.0-35.0); Mean Corpuscular Hemoglobin 30.0 pg (27.0-33.0); Mean Corpuscular Volume 86.5 fL (80.0-98.0); NRBC Abs Auto 0.000 X10*3/uL (0.0-0.012); NRBC Pct Auto 0.0 /100WBC (0.0-0.2); Platelet Count 180 X10*3/uL (160-400); Red Blood Count 4.73 X10*6/uL (4.20-5.50); White Blood Count 5.9 X10*3/uL (4.8-10.8)
[2025-06-26 23:06] LABS: Alanine Aminotransferase 33 U/L (0-31); Albumin Level 4.5 g/dL (3.5-5.0); Alkaline Phosphatase 61 U/L (39-117); Anion Gap 15 (12-20); Aspartate Amino Transferase 26 U/L (5-31); Blood Urea Nitrogen 20 mg/dL (9-16); Calcium 8.8 mg/dL (8.4-10.2); Carbon Dioxide 23 mmol/L (22-29); Chloride 106 mmol/L (96-108); Creatinine Clr Calc Pharmacy 51.2; Estimated Glomerular Filt Rate 48; Magnesium 2.2 mg/dL (1.6-2.6); Potassium 4.5 mmol/L (3.3-5.1); Sodium 139 mmol/L (135-145); Total Protein 7.3 g/dL (6.5-8.0)
[2025-06-26 23:19] LABS: Troponin-I High Sensitivity 1055.1 ng/L (<3.5-17.0)
[2025-06-26 23:26] LABS: COVID-19 Test Negative (Negative); IDNOW Serial# 58CA691E
[2025-06-26 23:27] LABS: IDNOW Serial# 55D5AD1C; Influenza B2 Negative (Negative)
--- NOTE | 2025-06-26 23:46 | ED.CHESTPAIN ---
HPI - Chest Pain General Chief Complaint: Chest Pain Stated Complaint: chest pain Time Seen by Provider: 06/26/25 23:21 Source: patient Mode of arrival: ambulatory Limitations: no limitations History of Present Illness ED Provider: Dr. Smita Colin HPI narrative: Patient comes to emergency room complaining of chest pain that started 7 days ago. Patient reports that the chest pain has been intermittent, every day, patient states that it is usually worse when she starts walking. However, towards the when the pain started again, it was at rest while she was sitting. Patient reports a lot of burning sensation, pain 5/10, pressure. Patient states it radiates towards both shoulders. Denies any syncopal episodes. Patient denies any previous cardiac history. Patient known to be diabetic, history of hyperlipidemia but not on statins due to allergies/side-effects. Patient states that she called her PCP about 5 days ago, patient was given a prescription for sucralfate. Related Data Allergies Allergy/AdvReac Type Severity Reaction Status Date / Time Sulfa (Sulfonamide Allergy Unknown Verified 06/26/25 22:43 Antibiotics) Review of Systems Review of Systems: Constitutional : No Weight loss, No Fever, No Chills, No Night Sweats, No Fatigue, No Malaise ENT/Mouth : No Hearing loss, No Ear Pain, No Nasal Congestion, No Sinus Pain, No Hoarseness, No sore throat, No Rhinorrhea, No Swallowing Difficulty Eyes: No Eye Pain, No Swelling, No Redness, No Foreign Body, No Discharge, No Vision Changes Cardiovascular : Patient complaining of chest pain, chest pressure, worse with exertion, shortness of breath with the exertion Respiratory : No Cough, No Sputum, No Wheezing, No Smoke Exposure, dyspnea with exertion Gastrointestinal : No Nausea, No Vomiting, No Diarrhea, No Constipation, complaining of the epigastric burning sensation intermittently for a week, No abdominal Pain, No Hematochezia, No Melena Genitourinary : no irregular bleeding, No Dysuria, No Urinary Frequency, No Hematuria, No Urinary Incontinence, No Urgency, No Flank Pain, No Urinary Flow Changes, No Hesitancy Musculoskeletal : No joint pain, No Myalgias, No Joint Swelling Skin : No Skin Lesions, No rash Neuro : No Weakness, No Numbness, No Paresthesias, No Loss of Consciousness, No Dizziness, No Headache Psych : No Anxiety/Panic, No Depression, No SI/HI/AH/VH, No Social Issues, Heme/Lymph: No Bruising, No Bleeding,No Lymphadenopathy Endocrine : No Polyuria, No Polydipsia, No Temperature Intolerance COUNTS INCLUDE 234 BEDS AT THE [facility] Past Medical History Medical History Hyperlipidemia Diabetes Social History Social History Advance Directives: No Advance Directives Information Provided: Yes Physical Exam Exam: Exam: Appearance: Alert. Oriented X3. Patient looks uncomfortable Eyes: Pupils equal, round and reactive to light. ENT: Pharynx normal. Neck: Normal inspection. Neck supple. No lymph nodes noted. No crepitus CVS: Normal heart rate and rhythm. Pulses normal. Normal S1 and S2, +1 systolic murmur Respiratory: No respiratory distress. Breath sounds normal. No Wheezing. No rales Abdomen: Soft and nontender. No rigidity. No distention. Skin: Skin warm and dry. Slightly pale skin color. Normal skin turgor. Extremities: No lower extremity edema. No Lacerations. No Rash Neuro: Oriented X 3. No motor deficit. No sensory deficit. Moving all extremities. No slurred speech. CN 2 through 12 grossly intact Psych: calm, cooperative, normal affect Vital Signs: Vital Signs: Last Vital Signs Temp 97.9 F 06/26/25 22:38 Pulse 72 06/27/25 00:33 Resp 20 06/27/25 00:07 BP 144/80 H 06/27/25 00:33 Pulse Ox 97 06/27/25 00:07 O2 Del Method Room Air 06/27/25 00:07 BMI result Body Mass Index 33.6 Course Course Course Narrative: Before patient came in to the ED, labs were drawn. I was informed by the patient's nurse that the patient was coming into the main ED to a room after the lab reported a troponin of 1055 In her room, patient reporting 5/10 chest pain, burning sensation, feeling uncomfortable. Patient is receiving aspirin 325 mg, morphine 1 mg IV, sublingual nitroglycerin, metoprolol IV 5 mg, heparin push and heparin drip. Patient states that she is allergic / unwanted side effects to statins Medications Administered Generic Name Dose Route Start Last Admin Trade Name Freq PRN Reason Stop Dose Admin Heparin Sodium/Sodium Chloride 25,000 unit in 250 mls @ 0 mls/hr 06/26/25 23:30 06/27/25 00:40 Heparin Sodium,Porcine/1/2ns IVCONT 14 units/kg/hr .Q0M DARCI 12.45 mls/hr Protocol Administration Per Protocol Discontinued Medications Generic Name Dose Route Start Last Admin Trade Name Justen PRN Reason Stop Dose Admin Aspirin 325 mg 06/26/25 23:30 06/26/25 23:51 Aspirin 325 Mg Tablet PO 06/26/25 23:31 325 mg ONCE ONE Administration Heparin Sodium (Porcine) 4,000 unit 06/26/25 23:30 06/26/25 23:56 Heparin Sodium,Porcine 5,000 Unit/Ml Vial IVPUSH 06/26/25 23:31 4,000 unit ONCE ONE Administration Metoprolol Tartrate 5 mg 06/26/25 23:32 06/26/25 23:52 Metoprolol Tartrate 5 Mg/5 Ml Vial IVPUSH 06/26/25 23:33 5 mg ONCE ONE Administration Protocol Morphine Sulfate 1 mg 06/26/25 23:30 06/26/25 23:52 Morphine Sulfate 2 Mg/Ml Cartridge IVPUSH 06/26/25 23:31 1 mg ONCE ONE Administration Protocol Nitroglycerin 0.4 mg 06/26/25 23:30 06/26/25 23:50 Nitroglycerin 0.4 Mg Tab.Subl SUBLINGUAL 06/26/25 23:31 0.4 mg ONCE ONE Administration Nitroglycerin 0.4 mg 06/27/25 00:26 06/27/25 00:33 Nitroglycerin 0.4 Mg Tab.Subl SUBLINGUAL 06/27/25 00:27 0.4 mg ONCE ONE Administration Medical Decision Making Medical Decision Making [facility] Narrative: EKG 1.: Normal sinus rhythm, heart rate 90, no ST segment depression or elevation, no obvious T-wave inversions, QTC 452 Vitals: Blood pressure 186/97, heart rate 93, respirations 24, temperature 97.9 degrees, oxygen saturation 100% on room air My interpretation of labs: No significant abnormality in patient's hematology or chemistry. Glucose is slightly bumped, troponin is significantly elevated 1055. We do not have previous troponin levels for comparison. BNP pending I discussed the above-mentioned with our bulk materials handling plant operator Dr. Ray. We will re-evaluate the patient after she gets her medications. We will also repeat EKG. As long as the patient is pain-free and they are no ST changes, patient may stay here. Otherwise, patient may need to be transferred. I discussed the above-mentioned with the patient and her , both agree with plan. My interpretation of EKG 2.: Normal sinus rhythm, heart rate 71, T-wave inversions in lead 3 and AVF, ST segment the patient's in before V5 V6, less than 1 mm, QTC 423. EKG 3.: No significant changes from previous EKG Patient's current blood pressure 133/74, heart rate 69, patient states that she is completely pain-free, no shortness of breath, no GERD symptoms, no anxiety Discussed the patient with Dr. Ray, patient being admitted. I discussed the patient with Dr. Cifuentes from the Medicine team, patient being admitted. Patient and her agreeable with the above-mentioned plan Differential Diagnosis Differential Diagnoses: The differential diagnosis associated with the presentation includes (NSTEMI, STEMI, ACS) Admission/Observation Consideration of admission/observation: Escalation of care including admission/observation considered Consult Healthcare Provider Management of the patient was discussed with: Hospitalist and Wood Finisher Apprentice Lab Data MDM Lab Attestation statement: I reviewed the patient's lab results. 06/26/25 22:44 06/26/25 22:44 Labs: Lab Results 06/26/25 06/26/25 Range/Units 22:44 23:33 WBC 5.9 (4.8-10.8) X10*3/uL RBC 4.73 (4.20-5.50) X10*6/uL Hgb 14.2 (12.0-16.0) g/dl Hct 40.9 (37.0-47.0) % MCV 86.5 (80.0-98.0) fL MCH 30.0 (27.0-33.0) pg MCHC 34.7 (31.0-35.0) g/dl RDW 13.2 (11.0-16.0) % Plt Count 180 (160-400) X10*3/uL MPV 10.5 (9.4-12.3) fL Immature Gran % (Auto) 0.3 (0.0-0.4) % Neut % (Auto) 47.8 (45-73) % Lymph % (Auto) 41.3 H (20-40) % [place] % (Auto) 8.2 (2-11) % Eos % (Auto) 1.9 (0-4) % Baso % (Auto) 0.5 (0-2) % Lymph # (Auto) 2.4 (1.2-4.9) X10*3/uL [place] # (Auto) 0.5 (0.1-1.2) X10*3/uL Eos # (Auto) 0.1 (0.0-0.4) X10*3/uL Baso # (Auto) 0.0 (0.0-0.2) X10*3/uL Abs Immat Gran (auto) 0.02 (0.00-0.03) X10*3/uL Absolute Neuts (auto) 2.8 (2.0-8.3) x10*3/uL Absolute Nucleated RBC 0.000 (0.0-0.012) X10*3/uL Nucleated RBC % (auto) 0.0 (0.0-0.2) /100WBC PT 10.6 L (10.9-12.4) SEC INR 0.9 (0.9-1.1) APTT 30.8 (26.7-34.1) SEC Sodium 139 (135-145) mmol/L Potassium 4.5 (3.3-5.1) mmol/L Chloride 106 (96-108) mmol/L Carbon Dioxide 23 (22-29) mmol/L Anion Gap 15 (12-20) BUN 20 H (9-16) mg/dL Creatinine 1.12 (0.5-1.4) mg/dL Estim Creat Clear Calc 51.2 Estimated GFR 48 Random Glucose 230 H (60-115) mg/dL Calcium 8.8 (8.4-10.2) mg/dL Magnesium 2.2 (1.6-2.6) mg/dL Total Bilirubin 1.1 H (0.0-1.0) mg/dL AST 26 (5-31) U/L ALT 33 H (0-31) U/L Alkaline Phosphatase 61 (39-117) U/L Troponin I High Sens 1055.1 H* (<3.5-17.0) ng/L B-Natriuretic Peptide 53 (<100) pg/mL Total Protein 7.3 (6.5-8.0) g/dL Albumin 4.5 (3.5-5.0) g/dL COVID-19 (LUIS CARLOS) Negative (Negative) COVID-19 Clin Com See Note Influenza Type A (SRINI) Negative (Negative) Influenza Type B (SRINI) Negative (Negative) Influenza A & B Note See Note Independent Interpretation I performed an independent interpretation of an: EKG Independent Historian Clinical information obtained from an independent historian. History obtained from or confirmed by: Spouse Chronic Conditions Patient?s care impacted by: Diabetes and Other (Hyperlipidemia, no now new diagnosis of hypertension and NSTEMI) Critical Care Time Critical Care Time Critical Care Time: Yes Total Critical Care Time: 75 Attestation: I have personally provided critical care time. Time includes review of lab data, radiology results, discussion with consultants, and monitoring for potential decompensation. Intervention performed as documented. Discharge Plan Discharge Clinical Impression: Acute non-ST elevation myocardial infarction (NSTEMI) Patient Disposition: Admitted As Inpatient
--- NOTE | 2025-06-26 23:49 | ECG_ITS ---
Test Reason : REPEAT Blood Pressure : */* mmHG Vent. Rate : 71 BPM Atrial Rate : 71 BPM P-R Int : 204 ms QRS Dur : 94 ms QT Int : 390 ms P-R-T Axes : 50 8 -43 degrees QTcB Int : 423 ms Normal sinus rhythm Cannot rule out Anterior infarct (cited on or before 26-Jun-2025) ST & T wave abnormality, consider inferior ischemia Abnormal ECG When compared with ECG of 26-Jun-2025 22:35, Inverted T waves have replaced nonspecific T wave abnormality in Inferior leads Nonspecific T wave abnormality, improved in Anterolateral leads Referred By: Smita Colin Electronically Signed By: CIRILO SPENCER MD
[2025-06-26 23:50] VITALS: BP 185/92; PULSE 84
--- NOTE | 2025-06-27 | ECG_ITS ---
Test Reason : REPEAT 3 Blood Pressure : */* mmHG Vent. Rate : 65 BPM Atrial Rate : 65 BPM P-R Int : 196 ms QRS Dur : 86 ms QT Int : 398 ms P-R-T Axes : 42 18 -38 degrees QTcB Int : 413 ms Normal sinus rhythm Cannot rule out Anterior infarct (cited on or before 26-Jun-2025) Abnormal ECG When compared with ECG of 27-Jun-2025 00:17, No significant change was found Referred By: Smita Colin Electronically Signed By: CIRILO SPENCER MD
--- NOTE | 2025-06-27 | ECG_ITS ---
Test Reason : REPEANR #4 CP ADMIT Blood Pressure : */* mmHG Vent. Rate : 67 BPM Atrial Rate : 67 BPM P-R Int : 202 ms QRS Dur : 82 ms QT Int : 394 ms P-R-T Axes : 52 7 -11 degrees QTcB Int : 416 ms Normal sinus rhythm Cannot rule out Anterior infarct (cited on or before 26-Jun-2025) Abnormal ECG When compared with ECG of 27-Jun-2025 01:09, No significant change was found Referred By: Apurva Larios Electronically Signed By: CIRILO SPENCER MD
[2025-06-27 00:01] LABS: INTERNATIONAL NORM RATIO 0.9 (0.9-1.1); Partial Thromboplastin Time 30.8 SEC (26.7-34.1); Prothrombin Time 10.6 SEC (10.9-12.4)
[2025-06-27 00:07] VITALS: BP 131/78; PULSE 82; RESP 20; O2SAT 97
[2025-06-27 00:19] LABS: B Type Natriuretic Peptide 53 pg/mL (<100)
--- OUTSIDE RECORDS SUMMARY | 2025-06-27 00:31 | XMS_ITS | Encounter Summary ---
Author Organization [facility] Address [address] [place] [address] [place] [phone] Phone Care Team Providers Care County Historian Name Role Phone Jan Kapoor MD Primary Care Provide r Chrissy Best DO Primary Care Provider [phone] Gary Yu DO Primary Care Provider [phone] Chrissy Best DO Unavailable [phone] Encounter Details Date Type Department Care Team (Late st Contact Info) Description 04/08/2018 Ancillary Orders Virtual Department [address] [place] [address] Geovanny Pollock MD [address] [place] [address], [address] [address] [email or web address] Calculus of kidney Social History Tobacco Use Types Packs/Day Years [...] 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 Not on file Not on file documented as of this encounter Plan of Treatment Not on file documented as of this encounter Visit Diagnoses Diagnosis Calculus of kidney documented in this encounter Additional Health Concerns Assessment Noted Time PHQ-2 Depression Total Score: 2 12/13/19 18 1:44 PM EST documented as of this encounter Care Teams County Historian Relationship Specialty Start Date End Date Jan Kapoor MD [email or web address] PCP - General 08/08/17 09/08/18 Chrissy Best DO [address] [place] [id number] [email or web address] PCP - General Family Medicine 09/09/18 05/25/20 Gary Yu DO [address] [place] [id number] [email or web address] PCP - General Internal Medicine 05/26/20 Chrissy Best DO [address] [place] [id number] [email or web address] Insurance Assigned Provider 07/30/20 09/25/20 documented as of this encounter Additional Source Comments The information contained in this document represents components of the legal health record. It is not the complete legal health record.[facility]
--- OUTSIDE RECORDS SUMMARY | 2025-06-27 00:31 | XMS_ITS | Clinical Summary ---
Author Organization [facility] Address [address] [place] [phone] Phone Care Team Providers Care Claims Sorter Name Role Phone Gary Yu Primary Care Provider [phone] Allergies Active Allergy Reactions Criticality Noted Date Comments Amitriptyline 12/13/2017 Limb pain Atorvastatin 12/13/2017 Limb pain Cromolyn 12/13/2017 depersonalization Fluticasone 12/13/2017 Wheezing Hyoscyamine 12/13/2017 Nausea, dizziness Lemon Anaphylaxis High 12/13/2017 Mushroom Anaphylaxis High 12/13/2017 Pravastatin 12/13/2017 Heel pain Budesonide 12/13/2017 Dry throat Sulfa (Sulfonamide Antibiotics) Unknown 12/13/2017 Theophylline 12/13/2017 Nausea, shakes Ezetimibe 12/13/2017 aches Medications aspirin 81 MG EC tablet 1 tablet Active blood sugar diagnostic Strp strips TEST 3 TIMES DAILY DIRECTED Active albuterol (VENTOLIN HFA) 90 mcg/actuation inhalerIndicatio ns:Mild intermittent asthma without complication Inhale 2 puffs into the lungs every 6 (six) hours as needed for wheezing. 1 Inhaler 1 01/14/20 19 Active blood sugar diagnostic Strp strips 1 each by Miscellaneous route as needed. Reli-On test strips OTC Active glipiZIDE (GLUCOTROL) 10 MG tabletIndication s:Uncontrolled type 2 diabetes mellitus without complication, without long-term current use of insulin Take 1 tablet (10 mg total) by mouth daily. 90 tablet 3 11/25/19 20 Active SINGULAIR 10 mg tablet Take 1 tablet (10 mg total) by mouth nightly at bedtime. at bedtime. 90 tablet 3 12/22/19 20 Active metFORMIN (GLUCOPHAGE) 1000 MG tabletIndication s:Diabetes mellitus Take 1 tablet (1,000 mg total) by mouth 2 (two) times a day with meals. 60 tablet 3 09/20/20 Active TRULICITY 1.5 mg/0.5 mL subcutaneous injection ADMINISTER 3 MG UNDER THE SKIN EVERY WEEK 01/18/20 Active Active Problems Problem Noted Date Diagnosed Date Controlled type 2 diabetes m ellitus without complication, without long-term current use of insulin 12/13/2017 Asthma 12/13/2017 Allergic rhinitis 12/13/2017 Carpal tunnel syndrome 12/13/2017 GERD (gastroesophageal reflux disease) 8 Hyperlipidemia 12/13/2017 Obesity 12/13/2017 Urolithiasis 12/13/2017 Left knee pain 12/13/2017 Immunizations Immunization Administration Dates Next Due INFLUENZA, SPLIT VIRUS, TRIVALENT W/ PRESERVATIV E IM 11/09/2011 Influenza, Unspecified Formulation 11/13/2012 Td, unspecified formulation 10/21/2005 Tdap 11/05/2014 Family History Medical History Relation Comments Diabetes Brother Hypertension Brother Cancer Sister Diabetes Sister Hypertension Sister Relation Status Comments Brother Sister Social History Tobacco Use Types Packs/Day Years Used Date Smoking Tobacco: Never Smokeless Tobacco: Never Tobacco Cessation:Counseling Given: Not Answered Alcohol Use Standard Drinks/Week Comments No 0 (1 standard drink = 0.6 oz pur e alcohol) Education Answer Date Recorded Are you interested in more education? Not on rylee e 02/15/2023 Are you concerned about learning? Not on file 02/15/2023 No 02/15/2023 No 02/15/2023 Digital Access Answer Date Recorded No 03/18/2023 No 03/18/2023 Reliable internet access at home? Not on file 03/18/2023 Device with a working camera? 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 Not on file Not on file Last Filed Vital Signs Vital Sign Reading Time Taken Comments Blood Pressure 157/82 01/22/2023 12:18 PM EDT Pulse 91 01/22/2023 12:18 PM EDT Temperature 36.6 C (97.9 F) 04/15/2019 11:45 AM EDT Respiratory Rate - - Oxygen Saturation 97% 04/15/2019 11:45 AM EDT Inhaled Oxygen Concentration - - Weight 91.6 kg (202 lb) 01/22/2023 12:18 PM EDT Height 157.5 cm (5' 2 ) 01/22/2023 12:18 PM EDT Body Mass Index 36.95 01/22/2023 12:18 PM EDT Plan of Treatment Health Maintenance Due Date Last Done Comments HEPATITIS C SCREENING 1973 PNEUMOCOCCAL VACCINES (50+ years) (1 of 2 - PCV) 1974 COLOGUARD 2000 COLONOSCOPY 2000 COLORECTAL CANCER SCREENING 2000 FIT TEST 2000 FOBT 2000 SIGMOIDOSCOPY 2000 VIRTUAL COLONOSCOPY 2000 ZOSTER VACCINES (1 of 2) 2005 MAMMOGRAM 08/08/2013 08/08/2011 RSV VACCINE (1 - Risk 60-74 years 1-dose series) 2015 URINE MICROALBUMIN/CREATININE RATIO 12/13/2017 DEPRESSION SCREENING 12/13/2018 12/13/2017 DIABETIC EYE EXAM 12/09/2019 12/09/2018 OSTEOPOROSIS SCREENING INITIAL (ONE-TIME) 2020 LIPID PANEL 08/15/2021 08/15/2020, 12/18/2017 HEMOGLOBIN A1C 01/07/2022 07/10/2021, 0605/2021, 01/04/2021, Additional history exists BLOOD PRESSURE 07/24/2023 01/22/2023 Adult Td,Tdap Booster 11/05/2024 11/05/2014, 006 INFLUENZA VACCINE (#1) 2025 11/13/2012, 2011 COVID-19 VACCINE ( - season) 2025 SMOKING STATUS SCREENING (Once After 26 Yrs) Completed 01/22/2023 HEPATITIS A VACCINES Aged Out No long er eligible based on patient's age to complete this topic HIB VACCINES Aged Out No longer eligi ble based on patient's age to complete this topic MENINGOCOCCAL VACCINES (ACWY) Aged Out No longer eligible based on patient's age to complete this topic MENINGOCOCCAL VACCINES (B) Aged Out N o longer eligible based on patient's age to complete this topic Medical Devices Not on file Procedures Procedure Name Priority Date/Time Associated Diagnosis Comments HEMOGLOBIN A1C Routine 07/10/2021 9:26 AM EDT Controlled type 2 diabetes mellitus without complication, without long-term current use of insulin LIPID PANEL Routine 08/15/2020 9:17 AM EDT Controlled type 2 diabetes mellitus without complication, without long-term current use of insulin Hyperlipidemia, unspecified hyperlipidemia type HM DIABETES EYE EXAM FOR RESULT ENTRY ONLY Routine 12/09/2018 from Last 3 Months or Most Recently Relevant to Health Maintenance Results * (ABNORMAL) Hemoglobin A1c (07/10/2021 9:26 AM EDT) HEMOGLOBIN A1C 6.7(H) 4.3 - 5.8 % [facility] Blood 07/10/2021 9:26 AM EDT 07/10/2021 12:44 PM EDT Kamila LIGHT LAB BLOOD ORDERABLES Final Result Performing Organization Address City/State/[facility] Co de Phone Number [address] [address] * (ABNORMAL) Lipid panel (08/15/2020 9:17 AM EDT) HDL 40 mg/dL [facility] Comment: Interpretation <40 mg/dL: Low HDL cholesterol (major risk factor for CHD) Greater than or equal to 60 mg/dL: High HDL cholesterol ( negative risk factor for CHD) HDL - cholesterol is affected by a number of factors, e.g. smoking, excerise, hormones, sex and age. CHOLESTEROL 241(H) 0 - 240 mg/dL [facility] TRIGLYCERIDES 247(H) 30 - 160 mg/dL [facility] LDL 152(H) 50 - 129 mg/dL [facility] Comment: LDL levels in terms of risk for coronary heart disease: <100 mg/dL: Optimal 100-129 mg/dL: Near or above optimal 130-159 mg/dL: Borderline high 160-189 mg/dL: High >190 mg/dL: Very High CARDIAC RISK RATIO 6.0(H) 3.3 - 4.4 [facility] Blood 08/15/2020 9:17 AM EDT 08/15/2020 9:21 AM EDT us Kamila LIGHT LAB BLOOD ORDERABLES Final Result [facility] [address] [place] [address] * DIABETES EYE EXAM FOR RESULT ENTRY ONLY (12/09/2018) us Historical Provider HEALTH MAINTENANCE Edited Result - Final from Last 3 Months or Most Recently Relevant to Health Maintenance Insurance MEDICARE PART A & B [employer] MEDEX SUPPLEMENT MEDICARE PART A & B [employer] MEDEX SUPPLEMENT MEDICARE PART A & B [employer] MEDEX SUPPLEMENT MEDICARE PART A & B [facility] MEDEX SUPPLEMENT MEDICARE PART A & B [employer] MEDEX SUPPLEMENT MEDICARE PART A & B [employer] MEDEX SUPPLEMENT MEDICARE PART A & B [employer] MEDEX SUPPLEMENT MEDICARE PART A & B [employer] MEDEX SUPPLEMENT MEDICARE PART A & B [employer] MEDEX SUPPLEMENT Care Teams Claims Sorter Relationship Specialty Start Date End Date Gary Yu DO [email or web address] PCP - General Internal Medicine 05/26/20 Additional Source Comments The information contained in this document represents components of the legal health record. It is not the complete legal health record.[facility]
--- OUTSIDE RECORDS SUMMARY | 2025-06-27 00:31 | XMS_ITS | Encounter Summary ---
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 Not on file Not on file documented as of this encounter Plan of Treatment Not on file documented as of this encounter Visit Diagnoses Diagnosis Breast screening- Primary Breast screening, unspecified documented in this encounter Additional Health Concerns Assessment Noted Time PHQ-2 Depression Total Score: 2 12/13/19 18 1:44 PM EST documented as of this encounter Care Teams Engraver Copperplate Relationship Specialty Start Date End Date Gary Yu DO [email or web address] PCP - General Internal Medicine 05/26/20 documented as of this encounter Additional Source Comments The information contained in this document represents components of the legal health record. It is not the complete legal health record.[facility]
--- OUTSIDE RECORDS SUMMARY | 2025-06-27 00:31 | XMS_ITS | Encounter Summary ---
Author Organization [facility] Address [address] [place] [address] [address] [place] [address] Phone Care Team Providers Care Fiberglass Roller Name Role Phone Jan Kapoor MD Primary Care Provide r Chrissy Best DO Primary Care Provider [phone] Gary Yu DO Primary Care Provider [phone] Chrissy Best DO Unavailable Encounter Details Date Type Department Care Team (Late st Contact Info) Description 12/18/2017 Transcribe Orders [facility] [address] [place] [id number] Jan Kapoor MD [address] [facility] 1 [place] [address] [email or web address] Social History Tobacco Use Types Packs/Day Years Used Date Smoking Tobacco: Never Smokeless Tobacco: Never Comments Unknown Sex and Gender Information Value Date Recorded Sex Assigned at Not on file Legal Sex Female 9:55 PM EDT Gender Identity Not on file Sexual Orientation Not on file documented as of this encounter Plan of Treatment Not on file documented as of this encounter Visit Diagnoses Not on filedocumented in this encounter Additional Health Concerns Assessment Noted Time PHQ-2 Depression Total Score: 2 12/13/19 18 1:44 PM EST documented as of this encounter Care Teams Fiberglass Roller Relationship Specialty Start Date End Date Jan Kapoor MD [email or web address] PCP - General 08/08/17 09/08/18 Chrissy Best DO [address] [place] [phone] [email or web address] PCP - General Family Medicine 09/09/18 05/25/20 Gary Yu DO [address] [place] [phone] [email or web address] PCP - General Internal Medicine 05/26/20 Chrissy Best DO [address] [place] [id number] [email or web address] Insurance Assigned Provider 07/30/20 09/25/20 documented as of this encounter Additional Source Comments The information contained in this document represents components of the legal health record. It is not the complete legal health record.[facility]
--- OUTSIDE RECORDS SUMMARY | 2025-06-27 00:31 | XMS_ITS | Clinical Summary ---
Author Organization [address] [facility] Address [address] [place] [address] Phone Care Team Providers Care Farm Adviser Name Role Phone Gary Yu DO Primary Care Provider [phone] Allergies No known active allergies Medications Trulicity [...] by mouth every 4 (four) hours. Active Surgical History Surgery Date Site/Laterality Comments ROTATOR [...] 07/10/2022 07/10/2021, 04/07/2021, 08/15/2020, Additional history exists Depression Screening 10/21/2024 DTaP,Tdap,and Td Vaccines (3 - Td or Tdap) 11/05/2024 11/05/2014, 10/21/2005 Colorectal Cancer Screening: Colonoscopy 01/18/2025 Falls Risk Assessment 01/18/2025 Hepatitis C Screening 01/18/2025 Medicare Annual Wellness Visit 01/18/2025 Osteoporosis Screening (Bone Density Screening) 01/18/2025 Social Influencers of Health Screening 01/18/2025 Diabetes: Annual Urine Albumin-Creatinine Ratio (uACR) 01/22/2025 Diabetes: Blood Sugar Control Test (HGBA1C) 01/22/2025 COVID-19 Vaccine ( season) 2025 Influenza Vaccine (#1) 2025 11/13/2012, 2011 Cholesterol [...] age to complete this topic Insurance MEDICARE [facility] Care Teams Farm Adviser Relationship Specialty Start Date End Date Gary Yu DO [address] [place] [address] PCP - General Internal Medicine 01/18/25
[2025-06-27 00:33] VITALS: BP 144/80; PULSE 72
[2025-06-27] MEDS: Heparin Sodium,Porcine/1/2NS 25,000 UNIT/250 ML IV.SOLN 12.45 UNIT IVCONT (00:40)
--- NOTE | 2025-06-27 01:42 | PM.IMHP ---
History of Present Illness Date of Service: 06/27/25 Attending physician on admission: Effie Irwin Chief Complaint: Chest pain Pt is a 69 yo female with PMH HLD, NIDDMII, anxiety, obesity, Asthma presents to ED with complaint of mid sternal CP that started approximately 6 days ago. Pain was intermittent and often with ambulaton. Pt was seen by her PCP and was told it could be heartburn/ GERD and pt was prescribed medication sucralfate but the chest pain persisted. Pt also thought it could be her asthma and was using her rescue inhaler more often with no change in the chest pain. Pt More recently, when pt was having chest pain, it was radiating to both shoulders and occurring more at rest. Pt within the last hour noted complete resolve of chest pain on heparin and after receiving NTG SL and morphine. Pt described the pain as more of a pressure with no radiation. ED provider contacted cardiology noting the iniital tropnin [address], T changes on ECG. Cardiology felt that if pt was now CP free, pt could remain at [facility] on heparin infusion. Pt was accpeted for admisison as pt is chest pain free. Pt has family hx of CAD with her sister kajal had a CABG x3 and her niece who is older than patient also had CABG x3. Patient denies any history of smoking, alcohol use, marijuana use or illicit drug use. Patient does not use oxygen at home. Last A1c was 7.4 in May of 2025. Lipids in March of 2025 noted a triglyceride of 298, cholesterol 273, LDL 176 and HDL 38. Patient reiterated that she can not be on statins or Zetia due to adverse effects including edema. Patient can not take metformin due to GI side effects. Patient had started Jardiance 2 months prior. Review of Systems Review of Systems: Currently patient is chest pain-free and denies any shortness of breath at rest or with exertion. Patient is not having any nausea, vomiting or abdominal pain. Patient denies any issues with diarrhea or constipation. Patient denies any headache or visual changes or difficulty swallowing. Patient denies any recent history of swelling in the lower legs. Yes all other systems are reviewed and are negative [facility] Medical History (Updated 06/27/25 @ 02:33 by SAMMY Leonard) Asthma Hyperlipidemia Diabetes Cognitive capacity: Alert and orientated x3 Functional capacity: independent ambulation Patient : No Pertinent family history: Sister with history of CABG x3 Niece CABG x3 Surgical History (Updated 06/27/25 @ 02:33 by [facility]O [facility] History of dilatation and curettage Social History Advance Directives: No Advance Directives Information Provided: Yes Patient : No Ebola Risk: Travel/Contact With Anyone From Affected Area/s: No Has Patient Experienced Ebola Symptoms: No Meds Allergies Allergy/AdvReac Type Severity Reaction Status Date / Time ezetimibe (From Zetia) Allergy Severe edema Verified 06/27/25 02:12 Sulfa (Sulfonamide Allergy Unknown Verified 06/26/25 22:43 Antibiotics) [id number] Reductase AdvReac Severe edema Verified 06/27/25 02:12 Inhibitor metformin AdvReac Intermediate Diarrhea Verified 06/27/25 02:12 Active Medications: Current Medications Heparin Sodium (Porcine) (Heparin Sodium,Porcine 5,000 Unit/Ml Vial) 3,600 unit 40 unit/kg (3600 unit) IVPUSH PROTOCOL BOLUS PRN; Protocol PRN Reason: 40 unit/kg - Heparin Protocol Heparin Sodium (Porcine) (Heparin Sodium,Porcine 5,000 Unit/Ml Vial) 7,100 unit 80 unit/kg (7100 unit) IVPUSH PROTOCOL BOLUS PRN; Protocol PRN Reason: 80 unit/kg - Heparin Protocol Heparin Sodium/Sodium Chloride (Heparin Sodium,Porcine/1/2ns) 25,000 unit in 250 mls @ 0 mls/hr IVCONT .Q0M [facility]; Protocol Last Admin: 06/27/25 00:40 Dose: 14 units/kg/hr, 12.45 mls/hr Physical Exam Vital Signs and Narrative: Vital Signs: Last Vital Signs Temp 97.9 F 06/26/25 22:38 Pulse 72 06/27/25 00:33 Resp 20 06/27/25 00:07 BP 144/80 H 06/27/25 00:33 Pulse Ox 97 06/27/25 00:07 O2 Del Method Room Air 06/27/25 00:07 BMI result Body Mass Index 33.6 Alert and orientated X3, able to give good history. Neuro: CN II-X11 intact, no deficits, visual acuity intact EYES: PERRLA, EOM intact, sclerae nonicteric, conjunctiva pink ENT: hearing intact, no issues with swallowing, uvula midline, lips moist, nares patent no epistaxis Cardiac: S1 S2 RRR, no murmur, no JVD, no edema in Lower ext Pulmonary: lungs clear to auscultation B Abdominal: BS active in all 4 quadrants, no guarding, tenderness, rebounding MSK: strength 5/5 upper and lower extremities : no CVA tenderness no bladder distension Extremities: no edema in lower extremities, PT and DP pulses palpable +2 Psych: mood stable/ mildly anxious, judgment and insight good Skin: No new rashes or lesions Results Labs 06/26/25 22:44 06/26/25 22:44 Labs: Laboratory Results - last 24 hr 06/26/25 06/26/25 22:44 23:33 MCV 86.5 MCH 30.0 MCHC 34.7 RDW 13.2 Plt Count 180 MPV 10.5 Immature Gran % (Auto) 0.3 Neut % (Auto) 47.8 Lymph % (Auto) 41.3 H [place] % (Auto) 8.2 Eos % (Auto) 1.9 Baso % (Auto) 0.5 Lymph # (Auto) 2.4 [place] # (Auto) 0.5 Eos # (Auto) 0.1 Baso # (Auto) 0.0 Abs Immat Gran (auto) 0.02 Absolute Neuts (auto) 2.8 Absolute Nucleated RBC 0.000 Nucleated RBC % (auto) 0.0 PT 10.6 L INR 0.9 APTT 30.8 Anion Gap 15 Estim Creat Clear Calc 51.2 Estimated GFR 48 Random Glucose 230 H Calcium 8.8 Magnesium 2.2 Total Bilirubin 1.1 H AST 26 ALT 33 H Alkaline Phosphatase 61 B-Natriuretic Peptide 53 Total Protein 7.3 Albumin 4.5 COVID-19 (LUIS CARLOS) Negative COVID-19 Clin Com See Note Influenza Type A (SRINI) Negative Influenza Type B (SRINI) Negative Influenza A & B Note See Note ECG Attestation: I personally reviewed and interpreted this ECG as follows: (Initial EKG ST and T-wave abnormalities consider inferior ischemia, normal sinus rhythm QTC 423) Prior ECG tracings: available for review Assessment and Plan (1) Acute non-ST elevation myocardial infarction (NSTEMI): Status: Acute Plan Pt is a 69 yo female with PMH HLD, NIDDMII, anxiety, obesity, Asthma presents to ED with complaint of mid sternal CP that started approximately 6 days ago. Pain was intermittent and often with ambulaton. Pt was seen by her PCP and was told it could be heartburn/ GERD and pt was prescribed medication sucralfate but the chest pain persisted. Pt also thought it could be her asthma and was using her rescue inhaler more often with no change in the chest pain. Pt More recently, when pt was having chest pain, it was radiating to both shoulders and occurring more at rest. Pt within the last hour noted complete resolve of chest pain on heparin and after receiving NTG SL and morphine. Pt described the pain as more of a pressure with no radiation. Admission accepted as patient is currently chest pain-free and per director of bands because patient is chest pain-free she can be admitted to [facility] versus transfer. Acute NSTEMI Cardiology consulted Heparin infusion continues Patient currently chest pain-free ASA 81 mg daily, pt received 325 mgs in ED Telemetry Echocardiogram ordered for the a.m. Trend troponins - currently 1055, 1187 Lipid panel AM Patient can not take statins or Zetia due to adverse side effects NPO in case pt requires intervention/ then Cardiac diet NIDDM Patient started Jardiance 2 months ago, can not take metformin due to GI adverse side effects Sliding scale insulin Diabetic diet A1C 7.5 06/01/25 Hypertension Hydralazine PRN Avoid hypotension Low-sodium diet Asthma Currently without exacerbation Monitor via pulse ox every 4 and PRN Duo nebs p.r.n. Anxiety Patient's anxiety has improved since arrival and treatment Monitor for symptoms, treat accordingly DVT prophylaxis: Heparin infusion Med rec pending Full Code status Quality Stroke Does the patient have a stroke diagnosis?: No Reason for No Anti-thrombotic by Day Two: N/A - Med Ordered VTE Prior VTE?: No VTE Risk Level:: Medical - moderate - high VTE Device Contraindication: N/A - Device Ordered VTE Drug Contraindication: N/A - Med Ordered
[2025-06-27 02:13] LABS: Troponin-I High Sensitivity 1187.4 ng/L (<3.5-17.0)
[2025-06-27 05:35] VITALS: BP 158/76; PULSE 70; RESP 20; TEMP 36.4; O2SAT 99
--- NOTE | 2025-06-27 05:39 | P.EN_ITS ---
Event Note Date of Service: 06/27/25 Event Note: Nursing notified this customs entry writer that pt was having chest pain 10/30, mid sternal. BP 143/78, HR 70, POX 99 2L. ECG ordered and troponin is due. Pt requesting aspirin but she is maxed dose so far. Need to see ECG before I order NTG. Low dose morphine offered with some relief. ECG unchanged and union representative notified. ECG sent to provider and reviewd. Spoke with cardiologust over the phone and based on pt's presentation with 1-3 L upper chest pain, plan is to transfer. Cashier Tube Room is calling labor utilization superintendent and making arrangements for transfer. Pt is now NPO and is startting NTG drip at 33 mcg per union representative. Have signed out to attending and day provider will handle the actual transfer once we are notified . Time Spent With Patient Time: Total time managing care of this patient today ____ minutes.
--- NOTE | 2025-06-27 05:54 | PC.NURSE ---
Pt presented from the waiting f=room with reports of chest pain since last Saturday. Pt states that it had been ongoing but she thought it was heart burn and was taking tums but tonight it was worse and she couldn't take it any longer. Troponin came back elevated at 1055.1, and patient was brought to room and placed on monitor. @ peripheral IV lines placed #20 L-AC and #20 R-forearm. Pt medicated with IV morphine, 2 sublingual nitro, Heparin and Heparin gtt started. Pt pain improved. Pt also medicated with IV metoprolol d/t elevated SBP 180's. which also improved after medication. Pt resting quietly until a few moments ago when she had complained of chest discomfort 10/30 and was requesting aspirin. Apurva CALL CENTER REPRESENTATIVE notified and morphine ordered and administered. EKG and troponin ordered, tech obtaining at this time.
[2025-06-27 06:15] LABS: Hematocrit 38.7 % (37.0-47.0); Hemoglobin 13.6 g/dl (12.0-16.0); Imm Gran Abs Auto 0.01 X10*3/uL (0.00-0.03); Imm Gran Pct Auto 0.2 % (0.0-0.4); Lymphocytes Absolute Auto 2.3 X10*3/uL (1.2-4.9); MANUAL DIFF FLAG NO; Mean Corpuscular HGB Conc 35.1 g/dl (31.0-35.0); Mean Corpuscular Hemoglobin 30.7 pg (27.0-33.0); Mean Corpuscular Volume 87.4 fL (80.0-98.0); NRBC Abs Auto 0.000 X10*3/uL (0.0-0.012); NRBC Pct Auto 0.0 /100WBC (0.0-0.2); Platelet Count 156 X10*3/uL (160-400); Red Blood Count 4.43 X10*6/uL (4.20-5.50); White Blood Count 5.0 X10*3/uL (4.8-10.8)
[2025-06-27 06:31] LABS: Anion Gap 12 (12-20); Blood Urea Nitrogen 17 mg/dL (9-16); Calcium 8.6 mg/dL (8.4-10.2); Carbon Dioxide 25 mmol/L (22-29); Chloride 110 mmol/L (96-108); Cholesterol 260 mg/dL (<200); Creatinine Clr Calc Pharmacy 56.2; Estimated Glomerular Filt Rate 54; HDL Cholesterol 35 mg/dL (>40); Potassium 5.1 mmol/L (3.3-5.1); Sodium 142 mmol/L (135-145); Triglycerides 200 mg/dL (<150)
[2025-06-27 06:46] LABS: Troponin-I High Sensitivity 2246.5 ng/L (<3.5-17.0)
[2025-06-27 06:52] VITALS: BP 147/69; PULSE 70
[2025-06-27] MEDS: Nitroglycerin/D5W 100 MG/250 ML INFUS..BTL IVCONT (06:52)
--- NOTE | 2025-06-27 06:56 | PM.DS ---
DS: Providers Provider Date of Service: 06/27/25 Date of admission: 06/27/25 01:27 Date of discharge: 06/27/25 Primary care physician: Unknown Physician Admitting clinician: Apurva Larios Attending physician on admission: Effie Irwin Consults: 06/27/25 02:11 Consult to Cardiology Routine Consulting Provider: [facility] Reason for consultation: NSTEMI Has provider been notified: Yes Attending physician on discharge: Effie Irwin Discharging clinician: Apurva Larios DS: Transfer Hospital Acceptance Reason for Transfer: NSTEMI, higher level of care required Name of Facility: [facility] CCU Accepting Provider: per Dr. Miller DS: Diagnosis Discharge Diagnosis (1) Acute non-ST elevation myocardial infarction (NSTEMI): Start date: 06/26/25 Status: Acute DS: Summary Hospital Course Hospital Course: Pt is a 69 yo female with PMH HLD, NIDDMII, anxiety, obesity, Asthma presents to ED with complaint of mid sternal CP that started approximately 6 days ago. Pain was intermittent and often with ambulaton. Pt was seen by her PCP and was told it could be heartburn/ GERD and pt was prescribed medication sucralfate but the chest pain persisted. Pt also thought it could be her asthma and was using her rescue inhaler more often with no change in the chest pain. Pt More recently, when pt was having chest pain, it was radiating to both shoulders and occurring more at rest. Pt within the last hour noted complete resolve of chest pain on heparin and after receiving NTG SL and morphine. Pt described the pain as more of a pressure with no radiation. ED provider contacted cardiology noting the iniital tropnin [address], T changes on ECG. Cardiology felt that if pt was now CP free, pt could remain at [facility] on heparin infusion. Pt was accpeted for admisison as pt is chest pain free. Pt has family hx of CAD with her sister kajal had a CABG x3 and her niece who is older than patient also had CABG x3. Patient denies any history of smoking, alcohol use, marijuana use or illicit drug use. Patient does not use oxygen at home. Last A1c was 7.4 in May of 2025. Lipids in March of 2025 noted a triglyceride of 298, cholesterol 273, LDL 176 and HDL 38. Patient reiterated that she can not be on statins or Zetia due to adverse effects including edema. Patient can not take metformin due to GI side effects. Patient had started Jardiance 2 months prior. Pt remained chest pain free until 5AM and began having 1-3 Left upper chest pain, not completely relieved with morphine. Pt was already on heparing infusions and cardiologuist was notified. Stat ECG was sent to newspaper copy editor and repeat Troponin back at 2200. Cardiolgoist wanted pt transfered and notified [facility] and pt was accepted to CCU. Nitroglycerin infusion was also started. Discharge summery completed and pt updated on plan of care, having mild chest pressure but also expressing fear and anxiety over what will happen next. Pt asked that this play writer contact her and call was made. Admitting provider notified of plan. Charge nurse aware and transfer is in process. Time spent discussing smoking cessation with patient: 3 to 10 minutes (pt does not smoke ) Status at Discharge Cognitive/behavioral status at discharge: A/O X3 Functional status at discharge: bed bound (due to transfer via ambulance ) Overall status at discharge: patient is not back to baseline Time Attestation Total time managing care of this patient today: 60 mintues. Discharge Coordination Time (in mins): Stable experieincing chest pain Specific discharge activities: none, NPO on infusions Quality: Safe Use of Opioids Does Pt have an Active Cancer Diagnosis on the Problem List?: No Quality: Stroke Does the patient have a stroke diagnosis?: No Reason for No Anti-thrombotic at DC: N/A - Med Ordered (on heparing infusion ) Reason for No Anticoagulant at DC: N/A - Med Ordered Reason Not Initiating IV-Tpa: Contraindicated Reason for No Statin at DC: Adverse reaction to drug Physical Exam Exam: Exam: Pt currently A/O X3 HEENT: PERRLA, sclera nonicteric Lungs: CTA no cough or wheeze on NC Cardiac: S1S2 RRR. active chest pain/pressure L upper chest no edema, no JVD ABD: soft NT ND EXT: no edema CN II -XII intact Vital Signs: Vital Signs: Last Vital Signs Temp 97.5 F 06/27/25 05:35 Pulse 70 06/27/25 05:35 Resp 20 06/27/25 05:35 BP 158/76 H 06/27/25 05:35 Pulse Ox 99 06/27/25 05:35 O2 Del Method Nasal Cannula 06/27/25 05:35 O2 Flow Rate 2 06/27/25 05:35 BMI result Body Mass Index 33.6 DS: Data Data Completed and Pending Completed studies during hospitalization [Text1]: ECG, LLABS Pending studies at discharge: none Labs on day of discharge: Laboratory Results - last 24 hr 06/26/25 06/26/25 06/27/25 22:44 23:33 01:48 WBC 5.9 RBC 4.73 Hgb 14.2 Hct 40.9 MCV 86.5 MCH 30.0 MCHC 34.7 RDW 13.2 Plt Count 180 MPV 10.5 Immature Gran % (Auto) 0.3 Neut % (Auto) 47.8 Lymph % (Auto) 41.3 H [place] % (Auto) 8.2 Eos % (Auto) 1.9 Baso % (Auto) 0.5 Lymph # (Auto) 2.4 [place] # (Auto) 0.5 Eos # (Auto) 0.1 Baso # (Auto) 0.0 Abs Immat Gran (auto) 0.02 Absolute Neuts (auto) 2.8 Absolute Nucleated RBC 0.000 Nucleated RBC % (auto) 0.0 PT 10.6 L INR 0.9 APTT 30.8 Sodium 139 Potassium 4.5 Chloride 106 Carbon Dioxide 23 Anion Gap 15 BUN 20 H Creatinine 1.12 Estim Creat Clear Calc 51.2 Estimated GFR 48 Random Glucose 230 H Calcium 8.8 Magnesium 2.2 Total Bilirubin 1.1 H AST 26 ALT 33 H Alkaline Phosphatase 61 Troponin I High Sens 1055.1 H* 1187.4 H* B-Natriuretic Peptide 53 Total Protein 7.3 Albumin 4.5 Triglycerides Cholesterol LDL Cholesterol, Calc HDL Cholesterol COVID-19 (LUIS CARLOS) Negative COVID-19 Clin Com See Note Influenza Type A (SRINI) Negative Influenza Type B (SRINI) Negative Influenza A & B Note See Note 06/27/25 06:09 WBC 5.0 RBC 4.43 Hgb 13.6 Hct 38.7 MCV 87.4 MCH 30.7 MCHC 35.1 H RDW 13.2 Plt Count 156 L MPV 10.2 Immature Gran % (Auto) 0.2 Neut % (Auto) 45.5 Lymph % (Auto) 44.9 H [place] % (Auto) 7.4 Eos % (Auto) 1.6 Baso % (Auto) 0.4 Lymph # (Auto) 2.3 Moore # (Auto) 0.4 Eos # (Auto) 0.1 Baso # (Auto) 0.0 Abs Immat Gran (auto) 0.01 Absolute Neuts (auto) 2.3 Absolute Nucleated RBC 0.000 Nucleated RBC % (auto) 0.0 PT INR APTT Sodium 142 Potassium 5.1 Chloride 110 H Carbon Dioxide 25 Anion Gap 12 BUN 17 H Creatinine 1.02 Estim Creat Clear Calc 56.2 Estimated GFR 54 Random Glucose 105 Calcium 8.6 Magnesium Total Bilirubin AST ALT Alkaline Phosphatase Troponin I High Sens 2246.5 H* D B-Natriuretic Peptide Total Protein Albumin Triglycerides 200 H Cholesterol 260 H LDL Cholesterol, Calc 185 H HDL Cholesterol 35 L COVID-19 (LUIS CARLOS) COVID-19 Clin Com Influenza Type A (SRINI) Influenza Type B (SRINI) Influenza A & B Note Discharge Plan Discharge Anticipated Discharge Date/Time: 06/27/25 07:05 Patient Disposition: Xfer [facility] Hospital Discharge Diagnosis: NSTEMI Referrals: Gary Yu MD [Physician, Internal Medicine] Physician,Unknown J [Primary Care Provider, Medical] - 1 Week Discharge Medications: New heparin(porcine) in 0.45% NaCl 25,000 unit/250 mL Parenteral Solution 25,000 unit continuous IV infusion .Q0M Qty: 6000 0RF nitroglycerin in 5 % dextrose 100 mg/250 mL (400 mcg/mL) Solution 1 ml continuous IV infusion .Q0M Qty: 3000 0RF Discharge Orders: Discharge Order (Routine); Ordered 06/27/25 Ordered By: Apurva Larios Activity on Discharge: Rest with bed elevated Stand Alone Forms: Patient Portal Discharge page Print Language: Korean Care Plan Goals: HIgher level of care required Health Concerns: chest pain Plan of Treatment: Heparing infusion, telemetry, added NTG drip for transfer, morphine prn, trend Troponin Assessment: NSTEMI Troponins rising, 1000 - 1145 - 2200 chest pain relieved initially in ED< cardiology accepted pt for admission to [facility], pt developed CP at 5AM and per cardiolgist deemed transfr to [facility], CCU accpted. updated.
[2025-06-27 07:32] LABS: PTT Heparin Drip 167.6 SEC (53-77.9)
--- NOTE | 2025-06-27 07:46 | PC.NURSE ---
took over care at 0700. critical lab received from lab PTT HD 167.6 - heparin gtt paused per protocol, order placed for repeat PTT HD in 1 hour. Report given to hospital for behavioral medicine with this updated ptt info. Unclear who provider for this pt is at [facility] now during shift change and chart not updated - message to provider who had pt most recently.
[2025-06-27 08:34] VITALS: BP 147/69; PULSE 70; RESP 20; TEMP 36.6; O2SAT 99
--- NOTE | 2025-06-27 08:35 | PC.NURSE ---
pt left this facility at 0835 with [address] transport to [facility] M[facility]. Report given to RN. Nitro drip infusing per MAR on transport. Heparin drip paused on transport and not infusing due to high PTT HD. 114ml infused at time of transport. RN at [facility] aware of high PTT and stat lab draw on arrival to their facility
--- NOTE | 2025-06-27 08:40 | MHC.CM.PN ---
NSTEMI Cardiology arranged transfer to [facility] for Cardiac catheterization. Patient will transport via ALS from ER.
== END 2025-06-27 13:05 | disposition short-term general hospital (02) | DRG 282 ==
LOC: HO.ED 06-27 00:28 → HO.EDOVER 06-27 01:30
PROVIDERS: Nurse Practitioner Family; Admitting Provider Internal Medicine; Emergency Provider Emergency Medicine; PCP Internal Medicine; Visit Provider Internal Medicine
DX: I21.4 Non-ST elevation (NSTEMI) myocardial infarction (principal); E11.9 Type 2 diabetes mellitus without complications; J45.909 Unspecified asthma, uncomplicated; I10 Essential (primary) hypertension; F41.9 Anxiety disorder, unspecified; Z20.822 Contact with and (suspected) exposure to COVID-19; Z79.84 Long term (current) use of oral hypoglycemic drugs; Z79.899 Other long term (current) drug therapy
CPT/HCPCS: 36415; 80048; 80053; 80061; 83735; 83880; 84484; 85025; 85610; 85730; 87502; 87635; 93005; 99285; J0616; J1644; J2270; J2305

== ENCOUNTER → 2025-06-26 22:35 | Outpatient (BNV) | payer MEDICARE, SELFPAY | PROVIDERS: Admitting Provider Internal Medicine; Emergency Provider Emergency Medicine; PCP Internal Medicine; Visit Provider Internal Medicine Cardiovascular Disease | DX: R94.31 Abnormal electrocardiogram [ECG] [EKG] (principal); R07.89 Other chest pain; R79.89 Other specified abnormal findings of blood chemistry | CPT/HCPCS: 93010 ==

== ENCOUNTER → 2025-06-27 01:09 | Outpatient (BNV) | payer MEDICARE, SELFPAY | PROVIDERS: Admitting Provider Internal Medicine; Emergency Provider Emergency Medicine; PCP Internal Medicine; Visit Provider Internal Medicine Cardiovascular Disease | DX: R94.31 Abnormal electrocardiogram [ECG] [EKG] (principal); R07.9 Chest pain, unspecified | CPT/HCPCS: 93010 ==

== ENCOUNTER → 2025-06-27 01:27 | Outpatient (BNV) | payer MEDICARE, SELFPAY | PROVIDERS: Admitting Provider Internal Medicine; Emergency Provider Emergency Medicine; Visit Provider Nurse Practitioner Family | DX: I21.4 Non-ST elevation (NSTEMI) myocardial infarction (principal) | CPT/HCPCS: 99223; 99499 ==

== ENCOUNTER 2025-07-12 09:57 | Outpatient (AMB) | payer MEDICARE, SELFPAY ==
[2025-07-12 10:07] VITALS: BP 114/62; PULSE 65; BMI 33.0
--- NOTE | 2025-07-12 10:07 | A.OFFVIS_ITS ---
Vital Signs 07/12/25 10:07 Height 5 ft 4 in Weight 192 lb 3.889 oz BMI 33.0 BP 114/62 Blood Pressure Location Lt brachial Position Sitting Pulse 65 Pulse Source Pulse Oximeter Intake Visit Reasons: [place] [facility] [facility] ed- stent Metal Engraver Required: No Vehicle Body Builder: Vehicle Body Builder Present Allergies ezetimibe (From Zetia) Allergy (Severe, Verified 07/12/25 10:09) edema Sulfa (Sulfonamide Antibiotics) Allergy (Verified 07/12/25 10:09) Unknown Ccvyzxl-CON-KxJ Reductase Inhibitor Adverse Reaction (Severe, Verified 07/12/25 10:09) edema metformin Adverse Reaction (Intermediate, Verified 07/12/25 10:09) Diarrhea Medication List - Last Reconciled 07/12/25 by MAGGIE Bui albuterol sulfate 90 mcg/actuation (Ventolin HFA) 2 puffs inhalation Q4H PRN empagliflozin (Jardiance) 10 mg PO DAILY glipizide 10 mg PO DAILY metoprolol succinate ER 25 mg PO DAILY montelukast (Singulair) 10 mg PO DAILY sitagliptin phosphate (Januvia) 50 mg PO DAILY ticagrelor 90 mg PO BID HPI HPI fu [facility] ed- stent: Details: Skylar is a 69-year-old female with past medical history of obesity, hypertension, hyperlipidemia, diabetes who recently presented to [facility] with chest discomfort and ruled in for NSTEMI. She was transferred to [facility] and underwent cardiac catheterization showing left circumflex 95% stenosis and LAUREANO was placed. She now presents for follow-up. Today she reports that she has been getting discomfort in her chest for the last 3 months occurring mostly with physical activity. She thought it was heartburn and was being treated for GERD. She was put on omeprazole without relief of her symptoms. She states that her symptoms were increasing and happening easier. On the day of her ER presentation she had chest discomfort when sitting on the couch that went up to her throat. She then realized it may be cardiac and had her drive her to the hospital. Since her stent placement she has not had any recurrent symptoms. She has no shortness of breath, lightheadedness, heart palpitations, leg edema. She has been doing only light activities and taking all meds as directed. She is reporting some easy bruising. She is concerned about her cholesterol but is not interested in injections for cholesterol-lowering. She is willing to pursue cardiac rehab. is present. [facility] Medical History (Updated 07/12/25 @ 10:50 by MAGGIE Bui) Asthma Hyperlipidemia Diabetes Surgical History (Updated 07/12/25 @ 10:58 by MAGGIE Bui) History of cardiac cath History of dilatation and curettage Social History Alcohol intake: never Patient Tobacco Use Status: Never used Tobacco Review of Systems Const All systems reviewed & are unremarkable except as noted in HPI and below ENT Denies dizziness Card Denies chest pain, Denies chest pain at rest, Denies chest pain with activity, Denies rapid heart rate, Denies pedal edema, Denies edema, Denies leg edema, Denies lightheadedness, Denies palpitations, Denies dyspnea, Denies dyspnea on exertion and Denies orthopnea Resp Denies cough, Denies dyspnea and Denies dyspnea on exertion GI Denies hematochezia and Denies change in stool character Musc Denies abnormal gait, Denies limited range of motion, Denies muscle cramps, Denies muscle weakness, Denies numbness, Denies radiating pain into limb, Denies stiffness and Denies tingling Neuro Denies abnormal gait, Denies dizziness, Denies numbness and Denies tingling Endo Denies palpitations Physical Exam Vital Signs: Last Vital Signs Pulse 65 07/12/25 10:07 BP 114/62 07/12/25 10:07 BMI result Body Mass Index 33.0 Const General: cooperative, healthy appearing, comfortable and no acute distress Orientation/consciousness: patient oriented x3 Neck Neck: Yes normal visual inspection Resp Effort & Inspection: normal respiratory effort Auscultation: clear to auscultation bilaterally, no rales, no rhonchi and no wheezes Cardio Rate: regular rate Rhythm: regular rhythm Heart sounds: S1 normal heart sound present, S2 normal heart sound present, no gallops, no murmurs and no rubs Neuro General: patient oriented x3 Extrem Other: right radial cath site well healed with easily palpable radial pulse, normal right hand assessment General: Yes normal to inspection and No no pedal edema Psych Appearance: grossly normal Mental Status: mental status grossly normal Speech and movement: Normal speech and movement present Assessment & Plan Assessment & Plan (1) Acute non-ST elevation myocardial infarction (NSTEMI): Code(s): I21.4 - Non-ST elevation (NSTEMI) myocardial infarction Category: Medical Plan: NSTEMI 06/26/2025. Cardiac catheterization 06/27/2025 showed mid circumflex 95% stenosis, LAUREANO was placed. Echocardiogram 06/27/2025 showed EF 73%, no regional wall motion abnormalities and grade 1 diastolic dysfunction. She was put on asp irin indefinitely, Brilinta uninterrupted for 1 year, metoprolol XL 25 mg daily. She has a history of statin and Zetia intolerance. We discussed PCSK9 inhibitor and she is not interested at this time. She is going to work on lifestyle modifications and then plan for repeat fasting lipid check. Will order cardiac rehab. Signs and symptoms of angina reviewed with her. Cardiology follow-up 3 months, sooner if needed. (2) CAD (coronary artery disease): Code(s): I25.10 - Atherosclerotic heart disease of [place] coronary artery without angina pectoris Category: Medical Plan: New diagnosis of coronary artery disease with NSTEMI as above. She has cardiac risk factors of obesity, hypertension, hyperlipidemia and diabetes. She needs risk factor modification. (3) Stented coronary artery: Comment: LAUREANO to the left circumflex 06/27/2025 Code(s): Z95.5 - Presence of coronary angioplasty implant and graft Category: Surgical (4) History of cardiac cath: Comment: 06/27/2025 lad and RCA minimal luminal irregularities, mid left circumflex 95% stenosis, LAUREANO placed. Code(s): Z98.890 - Other specified postprocedural states Category: Surgical Plan: Right radial catheterization site well healed (5) Hypertension: Code(s): I10 - Essential (primary) hypertension Category: Medical Plan: Blood pressure goal less than 130/80. Well controlled at this time. Continue metoprolol. (6) Hospital discharge follow-up: Code(s): Z09 - Encounter for follow-up examination after completed treatment for conditio ns other than malignant neoplasm Category: Medical Plan: [facility] ED notes and [facility] [place] reviewed. (7) Hyperlipidemia: Code(s): E78.5 - Hyperlipidemia, unspecified Category: Medical Plan: [place] LDL goal less than 70 in patient with diabetes and CAD. She has a history of statin and Zetia intolerance with severe myalgias. The importance of good cholesterol control reviewed with her. She declines PCSK9 inhibitor at this time. Plan I discussed the diagnosis of coronary artery disease, NSTEMI, coronary stent placement. I reviewed the importance of continuing aspirin and Brilinta for at least a year to prevent blood clots and the role of cardiac rehabilitation in recovery. We reviewed her history of hyperlipidemia and statin intolerance, and I suggested dietary modifications and the potential use of injectable cholesterol-lowering medications, considering her concerns about cost and ad ministration. I emphasized the need to monitor for any recurrence of symptoms and to seek immediate medical attention if they occur. Orders: Orders Cardiac Rehab Today I21.4 - Non-ST elevation (NSTEMI) myocardial infarction, I25.10 - Atherosclerotic heart disease of [place] coronary artery without angina pectoris, Z95.5 - Presence of coronary angioplasty implant and graft Medications: New metoprolol succinate ER 25 mg PO DAILY 90 tabs 3RF ticagrelor 90 mg PO BID 180 tabs 3RF Discontinued nitroglycerin in 5 % dextrose 100 mg/250 mL (400 mcg/mL) Discontinued Reason: Patient no longer taking 1 mL continuous IV infusion .Q0M 3,000 mL 0RF heparin(porcine) in 0.45% NaCl 25,000 unit/250 mL Discontinued Reason: Patient no longer taking 25,000 units (250 mL) continuous IV infusion .Q0M 6,000 mL 0RF Scribe Plan - Not visible on output: - Continue taking aspirin and Brilinta as prescribed. - Participate in cardiac rehabilitation as scheduled. - Follow a heart-healthy diet, reducing greasy and fatty foods. - Monitor for any chest pain or symptoms and seek immediate medical attention if they occur. - Consider injectable cholesterol-lowering medications if cost and administration concerns are addressed. Patient was informed and verbally consented to the use of an ambient scribe for clinic note documentation during this visit. Visit time spent on chart review, interview, assessment, orders, documentation. Coding Level of Care Code Est Pt Level 4 (26700) Complex EM visit Add On G2211 Diagnoses Acute non-ST elevation myocardial infarction (NSTEMI) I21.4 CAD (coronary artery disease) I25.10 Stented coronary artery Z95.5 History of cardiac cath Z98.890 Hypertension I10 Hospital discharge follow-up Z09 Hyperlipidemia E78.5 Time Spent (min) 36
--- OUTSIDE RECORDS SUMMARY | 2025-07-12 12:12 | XMS_ITS | Encounter Summary ---
Author Organization [facility] Address [address] [place] [address] [address] [place] [address] Phone Care Team Providers Care Manager Animation Name Role Phone Jan Kapoor MD Primary Care Provide r Chrissy Best DO Primary Care Provider [phone] Gary Yu DO Primary Care Provider [phone] Chrissy Best DO Unavailable [phone] Encounter Details Date Type Department Care Team (Late st Contact Info) Description 12/18/2017 Transcribe Orders [facility] [address] [place] [id number] Jan Kapoor MD [address] [facility] 1 [place] [address] [email or web address] Social History Tobacco Use Types Packs/Day Years [...] documented as of this encounter Care Teams Manager Animation Relationship Specialty Start Date End Date Jan Kapoor MD [email or web address] PCP - General 08/08/17 09/08/18 Chrissy Best DO [address] [place] [address] [email or web address] PCP - General Family Medicine 09/09/18 05/25/20 Gary Yu DO [address] [place] [address] [email or web address] PCP - General Internal Medicine 05/26/20 Chrissy Best DO [address] [place] [address] [email or web address] Insurance Assigned Provider 07/30/20 09/25/20 documented as of this encounter Additional Source Comments The information contained in this document represents components of the legal health record. It is not the complete legal health record.[facility]
--- OUTSIDE RECORDS SUMMARY | 2025-07-12 12:12 | XMS_ITS | Encounter Summary ---
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 Not on file Not on file documented as of this encounter Plan of Treatment Not on file documented as of this encounter Visit Diagnoses Diagnosis Breast screening- Primary Breast screening, unspecified documented in this encounter Additional Health Concerns Assessment Noted Time PHQ-2 Depression Total Score: 2 12/13/19 18 1:44 PM EST documented as of this encounter Care Teams Rheumatology Nurse Relationship Specialty Start Date End Date Gary Yu DO [email or web address] PCP - General Internal Medicine 05/26/20 documented as of this encounter Additional Source Comments The information contained in this document represents components of the legal health record. It is not the complete legal health record.[facility]
--- OUTSIDE RECORDS SUMMARY | 2025-07-12 12:12 | XMS_ITS | Encounter Summary ---
Author Organization [facility] Address [address] [place] [address] [place] [address] Phone Care Team Providers Care Trucking Supervisor Name Role Phone Jan Kapoor MD Primary Care Provide r Chrissy Best DO Primary Care Provider [phone] Gary Yu DO Primary Care Provider [phone] Chrissy Best DO Unavailable [phone] Encounter Details Date Type Department Care Team (Late st Contact Info) Description 04/08/2018 Ancillary Orders Virtual Department [address] [place] [address] Geovanny Pollock MD [address] [place] [address], [address] [address] [email or web address] Calculus of kidney Social History Tobacco [...] 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 Not on file Not on file documented as of this encounter Plan of Treatment Not on file documented as of this encounter Visit Diagnoses Diagnosis Calculus of kidney documented in this encounter Additional Health Concerns Assessment Noted Time PHQ-2 Depression Total Score: 2 12/13/19 18 1:44 PM EST documented as of this encounter Care Teams Trucking Supervisor Relationship Specialty Start Date End Date Jan Kapoor MD [email or web address] PCP - General 08/08/17 09/08/18 Chrissy Best DO [address] [place] [address] [email or web address] PCP - General Family Medicine 09/09/18 05/25/20 Gary Yu DO [address] [place] [id number] [email or web address] PCP - General Internal Medicine 05/26/20 Chrissy Best DO [address] [place] [address] [email or web address] Insurance Assigned Provider 07/30/20 09/25/20 documented as of this encounter Additional Source Comments The information contained in this document represents components of the legal health record. It is not the complete legal health record.[facility]
--- OUTSIDE RECORDS SUMMARY | 2025-07-12 12:12 | XMS_ITS | Clinical Summary ---
Author Organization [facility] Address [address] [place] [address] Phone Care Team Providers Care Wood Technologist Name Role Phone Gary Yu DO Primary Care Provider [phone] Allergies No known active allergies Medications Trulicity [...] age to complete this topic Insurance MEDICARE [facility] Care Teams Wood Technologist Relationship Specialty Start Date End Date Gary Yu DO [address] [place] [address] PCP - General Internal Medicine 01/18/25
--- OUTSIDE RECORDS SUMMARY | 2025-07-12 12:13 | XMS_ITS | Clinical Summary ---
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 smoking, excerise, hormones, sex and age. CHOLESTEROL 241(H) 0 - 240 mg/dL [facility] TRIGLYCERIDES 247(H) 30 - 160 mg/dL [facility] LDL 152(H) 50 - 129 mg/dL [facility] Comment: LDL levels in terms of risk for coronary heart disease: <100 mg/dL: Optimal 100-129 mg/dL: Near or above optimal 130-159 mg/dL: Borderline high 160-189 mg/dL: High >190 mg/dL: Very High CARDIAC RISK RATIO 6.0(H) 3.3 - 4.4 C [facility] Blood 08/15/2020 9:17 AM EDT 08/15/2020 9:21 AM EDT us Kamila LIGHT LAB BLOOD ORDERABLES Final Result [facility] [address] [place] [address] * DIABETES EYE EXAM FOR RESULT ENTRY ONLY (12/09/2018) us Historical Provider HEALTH MAINTENANCE Edited Result - Final from Last 3 Months or Most Recently Relevant to Health Maintenance Insurance MEDICARE PART A & B [employer] [place] [employer] MEDEX SUPPLEMENT MEDICARE PART A & B [employer] MEDEX SUPPLEMENT MEDICARE PART A & B [employer] MEDEX SUPPLEMENT MEDICARE PART A & B [facility] MEDEX SUPPLEMENT MEDICARE PART A & B Business e via [place] [employer] MEDEX SUPPLEMENT MEDICARE PART A & B [employer] MEDEX SUPPLEMENT MEDICARE PART A & B [employer] MEDEX SUPPLEMENT MEDICARE PART A & B [employer] MEDEX SUPPLEMENT MEDICARE PART A & B [employer] MEDEX SUPPLEMENT Care Teams Communications Clerk Relationship Specialty Start Date End Date Gary Yu DO [email or web address] PCP - General Internal Medicine 05/26/20 Additional Source Comments The information contained in this document represents components of the legal health record. It is not the complete legal health record.[facility]
== END 2025-07-12 10:49 | disposition home or self-care (01) ==
PROVIDERS: PCP Internal Medicine; Visit Provider Nurse Practitioner Family
DX: I21.4 Non-ST elevation (NSTEMI) myocardial infarction (principal); I25.10 Atherosclerotic heart disease of native coronary artery without angina pectoris; Z95.5 Presence of coronary angioplasty implant and graft; Z98.890 Other specified postprocedural states; I10 Essential (primary) hypertension; Z09 Encounter for follow-up examination after completed treatment for conditions other than malignant neoplasm; E78.5 Hyperlipidemia, unspecified
CPT/HCPCS: 99214; G2211

== ENCOUNTER → 2025-07-12 09:57 | Outpatient (BNVA) | payer MEDICARE, SELFPAY | PROVIDERS: PCP Internal Medicine; Visit Provider Nurse Practitioner Family | DX: Z09 Encounter for follow-up examination after completed treatment for conditions other than malignant neoplasm (principal); I21.4 Non-ST elevation (NSTEMI) myocardial infarction; I25.10 Atherosclerotic heart disease of native coronary artery without angina pectoris; I10 Essential (primary) hypertension; E78.5 Hyperlipidemia, unspecified; Z95.5 Presence of coronary angioplasty implant and graft; Z98.890 Other specified postprocedural states | CPT/HCPCS: 99212 ==

== ENCOUNTER 2025-10-05 07:42 | Outpatient (REF) | payer MEDICARE, SELFPAY ==
--- OUTSIDE RECORDS SUMMARY | 2025-10-05 07:46 | XMS_ITS | Encounter Summary ---
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 Not on file documented as of this encounter Plan of Treatment Not on file documented as of this encounter Visit Diagnoses Diagnosis Breast screening- Primary Breast screening, unspecified documented in this encounter Additional Health Concerns Assessment Noted Time PHQ-2 Depression Total Score: 2 12/13/19 18 1:44 PM EST documented as of this encounter Care Teams Mill Tender Washing Relationship Specialty Start Date End Date Gary Yu DO [email or web address] PCP - General Internal Medicine 05/26/20 documented as of this encounter Additional Source Comments The information contained in this document represents components of the legal health record. It is not the complete legal health record.[facility]
--- OUTSIDE RECORDS SUMMARY | 2025-10-05 07:46 | XMS_ITS | Clinical Summary ---
Author Organization [facility] Address [address] [place] [address] Phone Care Team Providers Care Integrated Logistics Programs Director Name Role Phone Gary Yu DO Primary Care Provider [phone] Allergies No known active allergies Medications Trulicity [...] on file Sexual Orientation Not on file Last Filed Vital Signs [...] Last Done Comments Breast Cancer Screening 1955 Colorectal Cancer Screening: Colonoscopy 1955 Diabetes: Annual Foot Exam 1965 Diabetes: Annual Retina Eye Exam 1965 Pneumococcal Vaccine: 50+ Years (1 of 2 - PCV) 1974 RSV Immunization Adult Patients (1 - Risk 50-74 years 1-dose series) 2005 Zoster Vaccines (1 of 2) 2005 Diabetes: Annual GFR (Glomerular Filtration Rate) 07/10/2022 07/10/2021, 04/07/2021, 08/15/2020, Additional history exists Depression Screening 10/21/2024 DTaP,Tdap,and Td Vaccines (3 - Td or Tdap) 11/05/2024 11/05/2014, 10/21/2005 Falls Risk Assessment 01/18/2025 Hepatitis C Screening [...] age to complete this topic Insurance MEDICARE [facility] Care Teams Integrated Logistics Programs Director Relationship Specialty Start Date End Date Gary Yu DO [address] [place] [address] PCP - General Internal Medicine 01/18/25
--- OUTSIDE RECORDS SUMMARY | 2025-10-05 07:46 | XMS_ITS | Encounter Summary ---
Author Organization [facility] Address [address] [facility] [address] [place] [address] Phone Care Team Providers Care Community Health Consultant Name Role Phone Jan Kapoor MD Primary Care Provide r Chrissy Best DO Primary Care Provider [phone] Gary Yu DO Primary Care Provider [phone] Chrissy Best DO Unavailable [phone] Encounter Details Date Type Department Care Team (Late st Contact Info) Description 12/18/2017 Transcribe Orders [address] [address] Jan Kapoor MD [address] [facility] 1 [place] [address] [email or web address] Social History Tobacco Use Types Packs/Day [...] documented as of this encounter Care Teams Community Health Consultant Relationship Specialty Start Date End Date Jan Kapoor MD [email or web address] PCP - General 08/08/17 09/08/18 Chrissy Best DO [address] [place] [address] [email or web address] PCP - General Family Medicine 09/09/18 05/25/20 Gary Yu DO [address] [place] [address] [email or web address] PCP - General Internal Medicine 05/26/20 Chrissy Best DO [address] [place] [address] [email or web address] Insurance Assigned Provider 07/30/20 09/25/20 documented as of this encounter Additional Source Comments The information contained in this document represents components of the legal health record. It is not the complete legal health record.[facility]
--- OUTSIDE RECORDS SUMMARY | 2025-10-05 07:46 | XMS_ITS | Continuity of Care Document ---
Author Organization [facility] (formerly [facility], [facility] Address [address] [place] [address] Assessment Encounter Date Assessment Date Assessment LastModified by Organization Details LastModified Time 08/13/2025 08/13/2025 [address] [place] [address] ([employer]) MDM MODERATE MUST MEET 2 OUT OF [...] EACH ELEMENT THAT IS COVERED Not available 08/13/2025 14:40:30 Plan of Treatment Reminders Order Date Submit Date Provider Last Modified By Organization Details Last Modified Time Details Appointments FOLLOW UP 15 2024 10:30A M DR BOOKER Not available Not available Not available Lab None recorded . Referral None recorded . Procedures None recorded . Surgeries None recorded . Imaging None recorded . Medication Orders None recorded . Patient TargetsNo targets recorded. Patient InstructionsNo instructions recorded. Reason for Referral None Reported. Problems Name Problem SNOMED Code Status Onset Date Resolution Date Notes Provider Name and Address Organization Details Recorded Time Asthma 883986218 Active 2019 Raegan ibarra [facility] 5 08:29:12 Diabetes mellitus 30472695 Completed 201908/10/2020 Latha Lamar null, [facility] 0 09:04:26 Type 2 diabetes mellitus 14780057 Active 2019 Raegan Shadi null, [facility] 5 08:29:12 Allergic rhinitis 14129883 Active 2019 Raegan Hsu null, [facility] 5 08:29:13 Gastroes ophageal reflux disease 143811025 Active 2019 Raegan Shadi null, [facility] 5 08:29:12 Hyperlip idemia 76896320 Active 2019 Raegan Drew [facility], [facility] 5 08:29:13 Obesity 515501714 Active 2019 Raeganmyra Hsu [facility] 5 08:29:12 Urolithi asis 35325912 Active 2019 Raegan Shadi [facility] 5 08:29:13 Knee pain Active 2019 Raegan Shadi [facility] 5 08:29:18 Hyperten sive disorder 83646863 Active 2021 Gary Booker, DO [address] [place] [address], [place], [address], [facility] 2 14:38:39 Ganglion cyst of right hand 40583230980 9107 Active 2022 Raegan Shadi [facility], [facility] 5 08:29:12 Benign paroxysm al position al vertigo 890841589 Active 2022 Raegan Shadi [facility], [facility] 5 08:29:12 Benign paroxysm al position al vertigo 760726881 Active 2022 Raegan Shadi [facility] 5 08:29:12 Pain of right shoulder joint 81830767578 578627 Active 2022 Raeganmyra Hsu [facility] 5 08:29:12 Bilatera l tinnitus 64832436977 02 Active 2022 Raegan ibarra, [facility] 5 08:29:12 Rupture of rotator cuff of right shoulder 79149640686 590913 Active 2022 Raegan ibarra, [facility] 5 08:29:12 Neuropat hy due to diabetes mellitus 533062043 Active 2023 Raegan ibarra, [facility] 5 08:29:12 Edema of lower extremit y 585182737 [facility] 08:[facility] Chronic obstruct vanessa pulmonar y disease 18687189 Active 2023 Raegan ibarra, [facility] 5 08:29:12 Onychomy cosis of toenails 447473026 [facility] 08:29:12 Dupuytre n's contract ure of finger 013854391 Active 2024 Gary Booker DO [address] [place] [address], [id number], [facility] 5 12:14:22 Gastro-e sophagea l reflux disease with esophagi tis 277966126 Active 2024 KULDEEP CORREA [address] [place] [address], [id number], [facility] 5 14:13:45 Ischemic heart disease 026951046 Active 2024 Gary Booker DO [address] [place] [address], [id number], [facility] 5 14:40:53 Problem Notes None recorded. Procedures Surgical History Date Name Laterality Status Provider Name and Address Organization Details Recorded Time [facility] 09:15:24 Carpal tunnel surgery completed Latha Lamar [facility] 08/10/2020 09:15:39 Imaging Results None recorded. Procedure Notes None recorded. Medical Equipment None Reported. Allergies Allergen ID Allergen Name Allergen Category Reaction Reaction Severity Criticality Documentation Date Start Date Code Code System Note Provider Name and Address Organization Details Recorded Time 4136 lemon extract food anaphylax is Not available Not available 08/10/2020 82470 91 RxNorm [facility] 0 09:11:12 4137 cultivate d mushroom extract food,medi cation Not available Not available Not available 08/10/2020 08160 17 [facility] 0 09:11:26 4138 amitripty line medicatio n Not available Not available Not available 08/10/2020 704 RxNorm Latha Balicki [facility] 0 09:12:03 4139 atorvasta tin medicatio n Not available Not available Not available 08/10/2020 28733 Rx[facility] 0 09:12:13 4140 cromolyn medicatio n Not available Not available Not available 08/10/2020 84260 RxNorm Latha Balicki [facility] 0 09:12:22 4141 Flovent medicatio n Not available Not available Not available 08/10/2020 90389 2 Rx[facility] 0 09:12:31 4142 hyoscyami ne medicatio n Not available Not available Not available 08/10/2020 27869 0 RxNorm [facility] 0 09:12:43 4143 pravastat in medicatio n Not available Not available Not available 08/10/2020 78372 RxNorm [facility] 0 09:12:53 4144 Pulmicort medicatio n Not available Not available Not available 08/10/2020 18381 7 [facility] 0 09:13:02 4145 Substance with sulfonami de structure and antibacte rial mechanism of action (substanc e) medicatio n Not available Not available Not available 08/10/2020 67564 8003 [facility]ED [facility] 0 09:13:09 4146 theophyll ine medicatio n Not available Not available Not available 08/10/2020 08404 [facility] 0 09:13:17 4147 Zetia medicatio n Not available Not available Not available 08/10/2020 54313 9 [facility] 0 09:13:27 Medications Name Sig Start Date Stop Date Status Note LastModified by Organization Details LastModified Time Prescriptio n - Prior Authorizati on Request 06/01 completed Not Available Not Available Not Available Singulair 10 mg tablet TAKE 1 TABLET BY MOUTH EVERY DAY active Not Available Not Available No t Available magnesium 500 mg tablet Take by oral route. active Not Available Not Available No t Available azithromyci n 250 mg tablet TAKE 2 TABLETS (500 MG) BY ORAL ROUTE ONCE DAILY FOR 1 DAY THEN 1 TABLET (250 MG) BY ORAL ROUTE ONCE DAILY FOR 4 DAYS 12/11 completed Not Available Not Available Not Available sucralfate 1 gram tablet Take 1 tablet 4 times a day by oral route as directed for 14 days. 07/13 completed Not Available Not Available Not Available glipizide 10 mg tablet TAKE 1 TABLET BY MOUTH EVERY DAY active Not Available Not Available No t Available meclizine 12.5 mg tablet TAKE 1 TABLET BY MOUTH THREE TIMES DAILY FOR 10 DAYS NEEDED 12/30 completed Not Available Not Available Not Available tramadol 50 mg tablet TAKE 1 TABLET BY MOUTH EVERY 6 HOURS FOR 7 DAYS NEEDED FOR SHOULDER PAIN 12/30 completed Not Available Not Available Not Available meloxicam 7.5 mg tablet 11/20 completed [...] TAKE 1 TABLET BY MOUTH EVERY DAY 12/30 completed Not Available Not Available Not Available omeprazole 20 mg capsule,del ayed release TAKE 1 CAPSULE BY MOUTH EVERY DAY 08/13 completed Not Available Not Available Not Available metoprolol succinate ER 25 mg tablet,exte nded release 24 hr TAKE 1 TABLET BY MOUTH DAILY active Not Available Not Available No t Available methylpredn isolone 4 mg tablets in a dose pack FOLLOW PACKAGE DIRECTION S 12/11 completed Not Available Not Available Not Available Ventolin HFA 90 mcg/actuati on aerosol inhaler INHALE 2 PUFFS BY MOUTH INTO THE LUNGS EVERY 4 HOURS NEEDED FOR 30 DAYS active Not Available Not Available No t Available oxycodone 5 mg tablet TAKE 1 TABLET BY MOUTH EVERY [address] WHILE TAKING THIS MEDICATIO N 06/01 completed Not Available Not Available Not Available Adult Low Dose Aspirin 81 mg tablet,cee yed release Take 1 tablet every day by oral route. active Not Available Not Available No t Available Januvia 25 mg tablet TAKE 1 TABLET BY MOUTH EVERY DAY active Not Available Not Available No t Available Januvia 50 mg tablet TAKE 1 TABLET BY MOUTH EVERY DAY active Not Available Not Available No t Available ticagrelor 90 mg tablet TAKE 1 TABLET BY MOUTH TWICE DAILY active Not Available Not Available No t Available Jardiance 10 mg tablet TAKE 1 TABLET BY [...] t Available Vitals Date Recorded Body height Body mass index (BMI) Body weight Heart rate Oxygen saturation Systolic And Diastolic Provider Name and Address Organization Details Last Updated DateTime 157.48 cm 34.7 kg/m2 51778.8 3 g 65 /min 98 % 128/74 mm[Hg] Raegan Hsu [facility] 14:13:24 Social History Question Answer Notes LastModified by Organizat ion Details LastModified Time Tobacco Smoking Status Never Smoker Latha Willard ibarra [facility] 08/10/2020 09:13:50 What Was The Date Of Your Most Recent Tobacco Screening? 08/13/2025 [email or web address] Information not available 08/13/2025 Sex: Unknown Functional Status Question Answer Note LastModified by Organization D etails LastModified Time Do you or have you ever used any other forms of tobacco or nicotine? No [email or web address] Information not available 04/30/2022 Mental Status None recorded. Family History Relationship [...] Diagnosis SNOMED-CT Code Diagnosis ICD10 Code Diagnosis IMO Codes Diagnosis Note [id number] Gary Booker DO [facility] [address] [place] [address] 08/13/2025 14:00:38 08/16/2025 09:03:33 Depression screening 837235760 Z13.31 PHQ-9 score of 4 Ischemic h eart disease 115564608 I25.9 15390 circumflex stent on ticagrelor for a yearon metoprolol stay on jardiance Health Concerns Section Related Observation LastModified by Organization Detai ls LastModified Time None Recorded Concern Status LastModified by Organization Details LastModified Time None Recorded Payers Encounter Date Sequence Insurance Name Policy Number Policy Crhistianson Covered Member ID Christianson Member ID Guarantor Name 08/13/2025 1 [place] [employer] Skylar Arizmendi Khalif [id number] Skylar Khalif 08/13/2025 2 [place] [id number] Skylar Khalif [id number] Skylar Khalif Notes Date Note Type Note Provider Name a nd Address Organization Details Recorded Time 5 text/html Care Management - Coronary Artery Disease (CAD)Reported by PatientHPIFor self care, patient reportsnot under emotional stress. For severity, patient reportssymptoms are improvinganddoes not interfere with daily activities. For associated symptoms, patient reportsno chest pain,no shortness of breath,no left arm pain,no back pain,no neck pain,no left shoulder pain,no right shoulder pain,no numbness, andno sweats. Care Management - AsthmaReported by PatientHPIFor severity, patient reportsimproving,does not interfere with daily activities,does not disturb sleep, anddoes not cause nighttime awakening. For associated symptoms, patient reportsno fever,no fatigue,no irritability,no cough,normal appetite, andno change in productivity. Gary Booker, DO [address], [place], [address], [facility] 08/13/2025 14:45:22 OBGyn Episode No OBEpisode recorded.
--- OUTSIDE RECORDS SUMMARY | 2025-10-05 07:47 | XMS_ITS | Data Portability ---
Author Organization [facility] Telehealth Patient Home Address [address] [place] [address] Assessment Encounter Date Assessment Date Assessment LastModified by Organization Details LastModified Time 09/07/2024 09/07/2024 [address] [place] [address] (TOE PUNCHER) MDM MODERATE MUST MEET 2 OUT OF [...] THAT IS COVERED Not available 09/07/2024 11:11:19 12/30/2024 12/30/2024 [id number] [place] [address] (TOE PUNCHER) MDM HIGH MUST MEET 2 OUT OF 3 ELEMENTS: PROBLEMS, DATA OR RISK ELEMENT 1: PROBLEMS 1 OR MORE CHRONIC ILLNESS W/SEVERE EXACERBATION, PROGRESSION MAY REQUIRE HOSPITAL LEVEL CARE OR 1 ACUTE OR CHRONIC ILLNESS OR INJURY THAT POSES A THREAT TO LIFE OR BODILY FUNCTION ELEMENT 2: DATA: MUST MEET 2 OF 3 CATEGORIES CATEGORY 1 REVIEW OF PRIOR EXTERNAL NOTES REVIEW OF THE RESULTS ORDERING OF EACH TEST ASSESSMENT REQUIRING INDEPENDENT HISTORIAN(S) CATEGORY 2: INDEPENDENT INTERPRETATION OF TESTS BY ANOTHER PROVIDER/SPECIALI ST CATEGORY 3: DISCUSSION OF MGT OR TEST INTERPRETATION W/EXTERNAL PHYSICIAN/SPECIAL IST ELEMENT 3: RISK HIGH RISK OF MORBIDITY FROM ADDITIONAL DIAGNOSTIC TESTING OR TREATMENT PROVIDER MUST THOROUGHLY DOCUMENT EACH ELEMENT THAT IS COVERED The patient presented to their appointment today for multiple concerns requiring moderate to high-level decision making and took over 40-45 minutes for an adequate and appropriate history, exam, assessment and treatment plan. This appointment was done with an established patient. Not available 12/30/2024 12:19:47 06/02/2025 06/02/2025 [address] [place] [address] (TOE PUNCHER) MDM MODERATE MUST MEET 2 OUT OF [...] EACH ELEMENT THAT IS COVERED Not available 06/02/2025 09:16:37 08/13/2025 08/13/2025 [address] [place] [address] (TOE PUNCHER) MDM MODERATE MUST MEET 2 OUT OF [...] Not available Not available Not available Lab CMP, serum or plasma 2024 025 [facility], [place], [address], 03/31/2025 14:45:55 vitamin D, 25-hydrox y, total, serum 2024 025 [facility], [place], [address], 03/31/2025 14:45:55 lipid panel, blood 2024 025 [facility], [place], [address], 03/31/2025 14:45:55 lipid panel, blood 2024 025 [facility] [place], [place], [address], 03/31/2025 11:58:15 CMP, serum or plasma 2024 025 [facility] [place], [place], [address], 03/31/2025 11:58:15 vitamin D, 25-hydrox y, total, serum 2024 025 [facility], [place], [address], 12/30/2024 12:24:12 Referral hand surgeon referral 2024 025 kirill Hansen MD, [address] [place] [address], [address], 01/04/2025 08:42:53 Procedures None recorded. Surgeries None recorded. Imaging None recorded. Medication Orders Januvia 50 mg tablet 2024 025 [facility][id number], [address], [place], [id number], 06/02/2025 09:19:45 Ventolin HFA 90 mcg/actua tion aerosol inhaler 2024 025 [facility][id number], [address], [place], [id number], 06/02/2025 09:19:45 Jardiance 10 mg tablet 2024 025 [facility] #[id number], [address], [place], [id number], 03/31/2025 14:44:37 omeprazol e 20 mg capsule,d elayed release [address] [facility] #85383, [address], [place], [id number], 08/13/2025 14:09:13 Singulair 10 mg tablet 2024 025 [facility] #[id number], [address], [place], [id number], 12/30/2024 12:16:21 Patient TargetsNo targets recorded. Patient Instructions Encounter Date Encounter Id Patient Instructions Last Modified By Organization Details Last Modified Time 09/07/2024 [id number] chronic obstruct vanessa pulmonary disease (COPD): care instructions Not available 09/07/2024 11:07:15 learning about c opd and how to prevent lung infections Not available 09/07/2024 11:07:15 pulse oximetry* WALKER Not available 09/07/2024 11:20:47 12/30/2024 [id number] Dupuytren's Dise ase: Care Instructions Not available 12/30/2024 12:16:08 type 2 diabetes: care instructions Not available 12/30/2024 12:17:30 gastroesophageal reflux disease (GERD): care instructions Not available 12/30/2024 12:22:00 chronic obstruct vanessa pulmonary disease (COPD): care instructions Not available 12/30/2024 12:16:08 learning about c opd and how to prevent lung infections Not available 12/30/2024 12:16:08 high cholesterol : care instructions Not available 12/30/2024 12:22:49 pulse oximetry* Not available 12/30/2024 12:16:08 leg and ankle ed reggie: care instructions Not available 12/30/2024 12:16:08 03/31/2025 321600 pulse oximetry* Not available 03/31/2025 14:44:27 06/02/2025 [id number] pulse oximetry* WALKER Not available 06/02/2025 10:20:36 Reason for Referral Hand Surgeon Referral for Du puytren's contracture of finger Referring Physician: Gary Booker, Internal Medicine, Encounter Date: 12/30/2024 Results Created Date Observation Date Name Description Value Unit Range Abnormal Flag Note LastModifiedBy Organization Detail LastModifiedTime 09/07/20 24 09/07/2024 pulse oxime try* Result 97 Not Available [facility] Medicine [address] [place] [address], [address], 09/01/2024 10:47:03 12/31/19 25 12/30/2024 pulse oxime try* Result 98% Not Available [facility] Internal [address], [place], [address], 12/30/2024 08:29:25 03/31/20 25 03/31/2025 pulse oxime try* Result 98 Not Available [facility] Medicine [address] [place] [address], [place], [address], 03/30/2025 16:30:35 06/02/20 25 06/02/2025 pulse oxime try* Result 98 Not Available [facility] Internal [address], [place], [address], 05/19/2025 11:46:08 Result Notes None recorded. Problems Name Problem SNOMED Code Status Onset Date Resolution Date Notes Provider Name and Address Organization Details Recorded Time Asthma 289616758 Active 2019 Raegan ibarra [place] - [facility] 03/12/202 5 08:29:12 Diabetes mellitus 99525530 Completed 201908/10/2020 Latha Lamar null, [facility] 0 09:04:26 Type 2 diabetes mellitus 71893549 Active 2019 Raegan Shadi null, [facility] 5 08:29:12 Allergic rhinitis 57297954 [facility] 5 08:29:13 Gastroes ophageal reflux disease 635880277 Active 2019 Raegan Shadi null, [facility] 5 08:29:12 Hyperlip idemia 01633028 Active 2019 Raegan Shadi [facility], [facility] 5 08:29:13 Obesity 637456497 Active 2019 Raeganmyra [facility] 5 08:29:12 Urolithi asis 85466992 Active 2019 Raegan Shadi [facility] 5 08:29:13 Knee pain Active 2019 Raeganmyra [facility] 5 08:29:18 Hyperten sive disorder 72808632 Active 2021 Gary Booker, DO [address] [place] [address], [address], [facility] 2 14:38:39 Ganglion cyst of right hand 10867416732 9107 Active 2022 Raegan Hsu [facility], [facility] 5 08:29:12 Benign paroxysm al position al vertigo 235985676 Active 2022 Raegan Hsu [facility], [facility] 5 08:29:12 Benign paroxysm al position al vertigo 165473389 Active 2022 Raeganmyra [facility] 5 08:29:12 Pain of right shoulder joint 70654549481 082272 Active 2022 Raegan ibarra, [facility] 5 08:29:12 Bilatera l tinnitus 69382871827 02 Active 2022 Raegan ibarra, [facility] 5 08:29:12 Rupture of rotator cuff of right shoulder 41441422950 916752 Active 2022 Raegan ibarra, [facility] 5 08:29:12 Neuropat hy due to diabetes mellitus 193331702 Active 2023 Raegan ibarra, [facility] 5 08:29:12 Edema of lower extremit y 457474550 Active 2023 Raegan ibarra, [facility] 5 08:29:12 Chronic obstruct vanessa pulmonar y disease 66570766 Active 2023 Raegan ibarra, [facility] 5 08:29:12 Onychomy cosis of toenails 436651038 Active 2023 Raeganmyra ibarra, [facility] 5 08:29:12 Dupuytre n's contract ure of finger 613316700 Active 2024 Gary Booker DO [address] [place] [address], [address], [facility] 5 12:14:22 Gastro-e sophagea l reflux disease with esophagi tis 570496531 Active 2024 KULDEEP CORREA [address] [place] [address], [address], [facility] 5 14:13:45 Ischemic heart disease 206763059 Active 2024 Gary Booker DO [address] [place] [address], [address], [facility] 5 14:40:53 Problem Notes None recorded. Procedures Surgical History Date Name Laterality Status Provider Name and Address Organization Details Recorded Time colonoscopy completed Latha Lamar [facility] 08/10/2020 09:15:24 Carpal tunnel surgery completed Latha Lamar [facility] 08/10/2020 09:15:39 Imaging Results None recorded. Procedure Notes None recorded. Medical Equipment None Reported. Allergies Allergen ID Allergen Name Allergen Category Reaction Reaction Severity Criticality Documentation Date Start Date Code Code System Note Provider Name and Address Organization Details Recorded Time 4136 lemon extract food anaphylax is Not available Not available 08/10/2020 40669 91 [facility]Norm [facility] 0 09:11:12 4137 cultivate d mushroom extract food,medi cation Not available Not available Not available 08/10/2020 66014 17 [facility] 0 09:11:26 4138 amitripty line medicatio n Not available Not available Not available 08/10/2020 704 RxNorm [facility] 0 09:12:03 4139 atorvasta tin medicatio n Not available Not available Not available 08/10/2020 19672 Rx[facility] 0 09:12:13 4140 cromolyn medicatio n Not available Not available Not available 08/10/2020 36085 RxNorm [facility] 0 09:12:22 4141 Flovent medicatio n Not available Not available Not available 08/10/2020 79822 2 RxNorm [facility] 0 09:12:31 4142 hyoscyami ne medicatio n Not available Not available Not available 08/10/2020 52366 0 RxNorm [facility] 0 09:12:43 4143 pravastat in medicatio n Not available Not available Not available 08/10/2020 37611 RxNorm [facility] 0 09:12:53 4144 Pulmicort medicatio n Not available Not available Not available 08/10/2020 22443 7 RxNorm Latha ibarra [facility] 0 09:13:02 4145 Substance with sulfonami de structure and antibacte rial mechanism of action (substanc e) medicatio n Not available Not available Not available 08/10/2020 51538 8003 [facility]ED [facility] 0 09:13:09 4146 theophyll ine medicatio n Not available Not available Not available 08/10/2020 95708 RxNorm Latha ibarra [facility] 0 09:13:17 4147 Zetia medicatio n Not available Not available Not available 08/10/2020 51021 9 [facility] 0 09:13:27 Medications Name Sig Start Date [...] and Address Organization Details Last Updated DateTime 5 157.48 cm 37.2 kg/m2 26834.6 9 g 71 /min 98 % 148/74 mm[Hg] Raegan Hsu [facility] 5 11:58:35 Date Recorded Body height Body mass index (BMI) Body weight Oxygen saturation Heart rate Systolic And Diastolic Provider Name and Address Organization Details Last Updated DateTime 5 157.48 cm 37.1 kg/m2 57920.2 5 g 97 % 68 /min 122/78 mm[Hg] SAVANAH PARKS [facility] 5 14:11:00 Date Recorded Body height Body mass index (BMI) Body weight Oxygen saturation Heart rate Systolic And Diastolic Provider Name and Address Organization Details Last Updated DateTime 5 157.48 cm 36.8 kg/m2 54565.5 g 98 % 70 /min 122/74 mm[Hg] SAVANAH PARKS [facility] 5 09:03:48 Date Recorded Body height Body mass index (BMI) Body weight Heart rate Oxygen saturation Systolic And Diastolic Provider Name and Address Organization Details Last Updated DateTime 5 157.48 cm 34.7 kg/m2 63179.8 3 g 65 /min 98 % 128/74 mm[Hg] Raegan Hsu [facility] 5 14:13:24 Date Recorded Systolic And Diastolic Provider Name and Address Organization Details Last Updated DateTime 09/07/2024 138/72 mm[Hg] Rosemary Kitchen [address] [place], [address], [facility] 09/07/2024 11:11:07 Date Recorded Body height Body mass index (BMI) Body weight Heart rate Oxygen saturation Systolic And Diastolic Provider Name and Address Organization Details Last Updated DateTime 4 157.48 cm 36.9 kg/m2 61925.6 6 g 83 /min 97 % 154/70 mm[Hg] Lula Riley [facility] 4 10:44:29 Social History Question Answer Notes LastModified by Organizat ion Details LastModified Time Tobacco Smoking Status Never Smoker Latha Arguetawolf [facility] 08/10/2020 09:13:50 What Was [...] ICD10 Code Diagnosis IMO Codes Diagnosis Note [id number] Gary Booker [facility] [address] [facility], [place] [address] 08/12/2020 09:55:27 08/12/2020 10:43:37 Asthma 692653789 J45.909 stable Type 2 deborah betes mellitus 62634716 E11.9 will check BW as she is due, need to see if medication s need to be adjusted Hyperlipidemia 56328202 E78.5 needs Bw check, has not had Bw checked in a few years [id number] Gary Booker [facility] [address] [facility],[place] [address] 01/04/2021 09:28:17 01/04/2021 10:18:34 Asthma 258165932 J45.909 stable no interventi on needed at this time Type 2 deborah betes mellitus 99796075 E11.9 will check BW as she is due, need to see if medication s need to be adjusted Neuropathy due to diabetes mellitus 210689859 E13.40 mild intermitte nt diarrhea Diarrhea 92206537 R19.7 the patient refused any interventi ons at this time [id number] Gary Booker [facility] [address] [facility],[place] [employer] [place] [address] 04/07/2021 09:40:40 04/07/2021 10:06:56 Type 2 diabetes mellitus 22317618 E11.9 will check BW as she is due, need to see if medication s need to be adjusted Loss of hair 295845336 L 65.9 discussed with patientnot interested in additional lab worktold her she could use a supplement [id number] Gary Booker DO [facility] Medicine [address] [facility],[place] [employer] [place] [address] 07/12/2021 08:11:15 07/12/2021 11:49:24 Type 2 diabetes mellitus 05081276 E11.9 will recheck in 3 mowill talk to her sister about januvia which she uncertain she wants to takewill switch out the metformin due to diarrheawi ll adjust medication [id number] Gary Booker [facility] [address] [facility],[place] [employer] [place] [address] 01/12/2022 14:19:53 01/12/2022 16:17:06 Asthma 581964170 J45.909 Gastroesop hageal reflux disease 348022386 K21.9 Type 2 deborah betes mellitus 21827800 E11.9 needs a1c done NOTE she has had noted side effects from the metformin namdely the diarrhea and also her foot pain stoppipng the metformin stopped the foot apin this is not a neuropathy !!!! Osteopenia 172657707 M85 .80 will need bone scan Metformin adverse reaction 440490146 T38.3X5A this is not her diabetes this is from the metformin side effect !!!! [id number] Gary Booker DO [facility] [address] [facility],[place] [address] 04/30/2022 10:39:23 04/30/2022 14:12:40 Hypertensive disorder 34686759 I10 seems to be stable and is doing ok Asthma 206958223 J45.90 9 had a hard time with the pollen Type 2 deborah betes mellitus 84265306 E11.9 just had a1c drawn so is pending if increased we willconsid er increasing glip or trulicity but not going back to metformin Active or passive immunization 165244768 Z23 patient advised she is due for tdap, pneu 13 & 23, & shingles) Osteopenia 252413405 M85 .80 will need bone scan Advance care planning 71 5020987 Z71.89 done Depression screening 171 734739 Z13.31 PHQ-9 score of 4 [id number] Gary Booker [facility] [address] [facility],[place] [address] D [facility]MA[facility] [place] [address] 08/15/2022 10:04:33 08/15/2022 12:18:36 Hypertensive disorder 09710617 I10 seems to be stable and is doing ok Asthma 658443131 J45.90 9 had a hard time with the pollen Gastroesop hageal reflux disease 908759014 K21.9 Type 2 deborah betes mellitus 77386973 E11.9 just had a1c drawn so is pending if increased we will consider increasing glip or trulicity but not going back to metformin Screening mammography 24 848639 Z12.31 Advance care planning 71 5702367 Z71.89 done Osteopenia 775093775 M85 .80 will need bone scan [id number] Gary Booker [facility] [address] [facility] [address],[place] [address] 12/11/2022 09:41:42 12/11/2022 14:03:47 Hypertensive disorder 56664104 I10 seems to be stable and is doing ok Asthma 766031256 J45.90 9 had a hard time with the pollen Gastroesop hageal reflux disease 773294320 K21.9 stable Type 2 deborah betes mellitus 83041988 E11.9 just had a1c drawn so is pending if increased we will consider increasing glip or trulicity but not going back to metformint old her she needs to get diet back on trackhavin g her try to eat bettertold her that will try to get higher dose trulicity Allergic rhinitis 599689 04 J30.9 will have her use an iotc but she has had issues with puylmicort ....told to stop nasal decongest daily use due to rebound Ganglion c yst of right hand 2115325314 62330 M67.441 will refer for hand surg [id number] Gary Booker [facility] [address] [facility],[place] [address] 05/07/2023 14:43:59 05/07/2023 16:02:23 Hypertensive disorder 34143772 I10 seems to be stable and is doing ok Asthma 691339861 J45.90 9 had a hard time with the pollen and smoke from hedy Gastroesop hageal reflux disease 325429698 K21.9 stable Type 2 deborah betes mellitus 03554229 E11.9 just had a1c is 7told her she needs to get diet back on trackhavin g her try to eat better Advance care planning 71 6927133 Z71.89 done [id number] Gary Booker [facility] [address] [facility],[place] [address] 08/12/2023 10:56:18 08/12/2023 12:26:24 Hypertensive disorder 75663064 I10 seems to be stable and is doing ok Asthma 768732562 J45.90 9 had a hard time with the pollen and smoke from hedy Hyperlipidemia 37956945 E78.5 still elevated and is unfortunat odalys stuck with it as she tolerated none of the meds Type 2 deborah betes mellitus 61206188 E11.9 just had a1c is now 6.8 was 7doing ok overall now Benign par oxysmal positional vertigo 907390664 H81.11 we will treat her ears with meclizine and flonase Pain of ri ght shoulder joint 6498024787 7769974 M25.511 will get xr and then decide mri or dr hickey [id number] Gary Booker [facility] [address] [facility],[place] [address] 09/11/2023 08:16:25 09/11/2023 11:48:18 Hypertensive disorder 02974986 I10 seems to be stable and is doing ok Hyperlipidemia 94275143 E78.5 still elevated and is unfortunat odalys stuck with it as she tolerated none of the meds Type 2 deborah betes mellitus 12894941 E11.9 just had a1c is now 6.8 was 7doing ok overall now Bilateral tinnitus 60780 94358 102 H93.13 Asthma 860183137 J45.90 9 doing ok Rupture of rotator cuff of right shoulder 1292725572 9964527 M75.101 will provide pain med for night time [id number] Gary Booker [facility] [address] [facility],[place] [address] 11/20/2023 09:36:56 11/20/2023 10:25:58 Neuropathy due to diabetes mellitus 236663274 E13.40 seems about the same Asthma 111409870 J45.90 9 doing ok Hyperlipidemia 85806778 E78.5 still elevated and is unfortunat odalys stuck with it as she tolerated none of the meds Type 2 deborah betes mellitus 54264988 E11.9 just had a1c is now 7.6 since recent surgery 6.8 was 7doing ok overall now Hypertensive disorder 38 126478 I10 seems to be stable and is doing ok Edema of l ower extremity 698116212 R60.0 will try and diurese her as it is significan t edema [id number] Gary Booker [facility] [address] [facility],[place] [address] 02/21/2024 09:54:20 02/21/2024 15:43:32 Asthma 771003587 J45.909 doing ok Type 2 deborah betes mellitus 35395819 E11.9 just had a1c is not known now as it was not done by lab draw for reasons but fbw was 215 was 7.6 since recent surgery 6.8 was 7doing ok overall nowso we will chnge the eltonia to eldadiance 10 and see pt in 2 months Chronic ob structive pulmonary disease 08506001 J44.9 stable Hypertensive disorder 38 088734 I10 seems to be stable and is doing ok [id number] Gary Booker [facility] [address] [facility], [place] [address] 06/01/2024 10:01:45 06/01/2024 11:12:09 Depression screening 698332099 Z13.31 PHQ-9 score of 4 Hypertensive disorder 38 549205 I10 seems to be stable and is doing ok Chronic ob structive pulmonary disease 02492553 J44.9 stable Edema of l ower extremity 934056022 R60.0 will try and diurese her as it is significan t edema Type 2 deborah betes mellitus 24018534 E11.9 just had a1c is not known now as it was not done by lab draw for reasons but fbw was 215 was 7.6 since recent surgery 6.8 was 7doing ok overall nowso we will chnge the januvia to jardiance 10 and see pt in 2 months [id number] Gary Booker [facility] [address] [facility], [place] [address] 09/07/2024 10:34:46 09/07/2024 11:17:21 Chronic obstructive pulmonary disease 54670663 J44.9 stable Hypertensive disorder 38 285571 I10 seems to be stable and is doing ok Type 2 deborah betes mellitus 50610050 E11.9 just had a1c is now as it was 6.8 but fbw was 215 was 7.6 since rece6.8nt surgery was 7doing ok overall nowso we will chnge the januvia to jardiance 10 and see pt in 3 months Onychomyco sis of toenails 892771858 B35.1 almost totally cured with vicks !!! [id number] Gary Booker [facility] [address] [facility], [place] [address] 12/30/2024 11:43:48 12/30/2024 13:43:05 Depression screening 393427757 Z13.31 PHQ-9 score of 4 Asthma 963406358 J45.90 9 doing ok Chronic ob structive pulmonary disease 98595117 J44.9 stable but wheeze is bad Edema of l ower extremity 804489438 R60.0 currently clear Hypertensive disorder 38 654567 I10 seems to be stable and is doing ok Dupuytren' s contracture of finger 216465885 M72.0 needs referral Type 2 deborah betes mellitus 62155885 E11.9 just had a1c is now 8.3 due to stress of illness as it was 6.8 but fbw was 215 was 7.6 since rece6.8nt surgery was 7doing ok overall nowjardian ce 10 and see pt in 3 months Gastroesop hageal reflux disease 772030077 K21.9 has been notabley worse takes rolaids tums etcrecc prilosec Hyperlipidemia 80800980 E78.5 still elevated and is unfortunat odalys stuck with it as she tolerated none of the meds [id number] Gary Booker [facility] [address] [facility],[place] [employer] [place] [address] 03/31/2025 13:51:16 03/31/2025 15:28:41 Asthma [id number] J45.909 doing ok Hyperlipidemia 32325036 E78.5 still elevated and is unfortunat odalys stuck with it as she tolerated none of the meds Hypertensive disorder 38 849118 I10 seems to be stable and is doing ok Type 2 deborah betes mellitus [id number] E11.9 just had a1c is now 8.4 and is unable to get it downwas elevated prior to this as well due to stress of illness as it was 6.8 but fbw was 215 was 7.6 since rece6.8nt surgery was 7doing ok overall nowjardian ce 10 and see pt in 3 months Depression screening 171 499029 Z13.31 PHQ-9 score of 4 Chronic ob structive pulmonary disease 28952226 J44.9 stable but wheeze is bad [id number] Gary Booker [facility] [address] [facility],[place] [address] 06/02/2025 08:55:42 06/02/2025 09:59:26 Depression screening [id number] Z13.31 PHQ-9 score of 4 Hypertensive disorder 38 938894 I10 seems to be stable and is doing ok Hyperlipidemia 25084738 E78.5 still elevated and is unfortunat odalys stuck with it as she tolerated none of the meds Type 2 deborah betes mellitus 69576139 E11.9 just had a1c is now 8.4 and is unable to get it downwas elevated prior to this as well due to stress of illness as it was 6.8 but fbw was 215 was 7.6 since rece6.8nt surgery was 7doing ok overall nowjardian ce 10 and see pt in 3 months Asthma [id number] J45.90 9 doing ok Chronic ob structive pulmonary disease 21544722 J44.9 stable but wheeze is bad [id number] Gary Booker DO [facility] Internal Medicine [address] [facility] [address] [address],[place] [address] 08/13/2025 14:00:38 08/16/2025 09:03:33 Depression screening [id number] Z13.31 PHQ-9 score of 4 Ischemic h eart disease 339945596 I25.9 81492 circumflex stent on ticagrelor for a yearon metoprolol stay on jardiance Health Concerns Section Related Observation LastModified by Organization Detai ls LastModified Time None Recorded Concern Status LastModified by Organization Details LastModified Time None Recorded Advance Directives Directive None Recorded Payers Insurance Date Sequence Insurance Name Policy Number Policy Christianson Covered Member ID Christianson Member ID Guarantor Name 10/03/2025 1 [place] [employer] Skylar Cuadra [id number] Skylar Cuadra 10/03/2025 2 [place] [id number] Skylar Cuadra [id number] Skylar Cuadra 08/20/2023 2 [place] [facility] (O) [id number] Sklyar Cuadra [id number] Skylar Cuadra Notes Date Note Type Note Provider Name and Address Organization Details Recorded Time 09/07/20 24 text/htm l Care Management - HypertensionReported by PatientHPIFor self care, patient reportsnot under emotional stress. For severity, patient reportssymptoms are improvinganddoes not interfere with daily activities. For associated symptoms, patient reportsno dizziness,no lightheadedness,no chest pain,no shortness of breath,no palpitations,no edema,no calf muscle cramps,no blurred vision,no confusion,no headaches, andno fatigue. Care Management - [facility]Rep[facility], patient reportsseeing eye doctor yearly for dilated eye exam,checking feet regularly,normal range of home blood sugars (in the low 100s), andno side effects from medications. For associated symptoms, patient reportssymptoms are usually well controlled,no fatigue,no dizziness,no excessive sweating,no headaches,no confusion,no increased thirst,no increased appetite,no increased urination,no blurred vision,no numbness of feet, andno calluses on feet.ROS as noted in the HPI here for rechk and is doing ok overallrelates frustrated with her weightrelates no cp no sob Gary ToshaNatacha Booker, DO [address] [place], [address], [facility] [place] [facility] 09/07/2024 11:11:31 12/31/19 25 text/htm l Care Management - HypertensionReported by [facility] self care, patient reportsnot under emotional stress. For severity, patient reportssymptoms are improvinganddoes not interfere with daily activities. For associated symptoms, patient reportsno dizziness,no lightheadedness,no chest pain,no shortness of breath,no palpitations,no edema,no calf muscle cramps,no blurred vision,no confusion,no headaches, andno fatigue. Care Management - DiabetesReported by [facility], patient reportsseeing eye doctor yearly for dilated eye exam,checking feet regularly,normal range of home blood sugars (in the low 100s), andno side effects from medications. For associated symptoms, patient reportssymptoms are usually well controlled,no fatigue,no dizziness,no excessive sweating,no headaches,no confusion,no increased thirst,no increased appetite,no increased urination,no blurred vision,no numbness of feet, andno calluses on feet. Asthma F/UReported by [facility] quality, patient reportsdyspneaandtightness . For severity, patient reportsnot able to sleep during episode,symptoms cause awakening from sleep, andinterferes with daily activities.ROS as noted in the HPI here for rechk and is doing ok overallrelates frustrated with her breathing since stopping the singulairarelates no cp no sob Gary TohsaNatacha Booker, DO [address] [place], [address], [facility] 12/30/2024 12:24:00 03/31/20 25 text/htm l Care Management - HypertensionReported by PatientHPIFor self care, patient reportsnot under emotional stress. For severity, patient reportssymptoms are improvinganddoes not interfere with daily activities. For associated symptoms, patient reportsno dizziness,no lightheadedness,no chest pain,no shortness of breath,no palpitations,no edema,no calf muscle cramps,no blurred vision,no confusion,no headaches, andno fatigue. Care Management - DiabetesReported by PatientHPIFor self care, patient reportsseeing eye doctor yearly for dilated eye exam,checking feet regularly,normal range of home blood sugars (in the low 100s), andno side effects from medications. For associated symptoms, patient reportssymptoms are usually well controlled,no fatigue,no dizziness,no excessive sweating,no headaches,no confusion,no increased thirst,no increased appetite,no increased urination,no blurred vision,no numbness of feet, andno calluses on feet. Asthma F/UReported by PatientHPIFor quality, patient reportswell-controlled with antiasthmatics. For severity, patient reportsable to sleep during episodeanddoes not interfere with daily activities. For status, patient reportsimproving. For modifying factors, patient reportsavoidance of triggers,compliance with asthma regimen, andshort-acting beta agonist. For associated symptoms, patient reportsno fever,no fatigue,no irritability,no cough,normal appetite,no changes in productivity, andno shortness of breath. For antiasthmatics, patient reportscompliant with maintenance asthma medicationandno prior adverse reaction(s). Care Management - HyperlipidemiaReported by PatientHPIFor control, patient reportsusually well controlled,improving, andat goal. For complications, patient reportsno coronary artery disease,no heart attack,no cardiovascular disease,no pancreatitis, andno stroke.ROS as noted in the HPI heere for rechk and is having a hard time with her sugars staying lowher a1c is 8.4surgeons wont fix her hand according to the sugar here for rechk and is doing ok overallrelates frustrated with her breathing since stopping the singulairarelates no cp no sob Gary Booker DO [address] [place], [address], [facility] [place] [facility] 03/31/2025 14:47:05 06/02/20 25 text/htm l Care Management - DiabetesReported by PatientHPIFor self care, patient reportsseeing eye doctor yearly for dilated eye exam,checking feet regularly,normal range of home blood sugars (in the low 100s), andno side effects from medications. For associated symptoms, patient reportssymptoms are usually well controlled,no fatigue,no dizziness,no excessive sweating,no headaches,no confusion,no increased thirst,no increased appetite,no increased urination,no blurred vision,no numbness of feet, andno calluses on feet.a1c is 7.5 Care Management - HypertensionReported by PatientHPIFor self care, patient reportsnot under emotional stress. For severity, patient reportssymptoms are improvinganddoes not interfere with daily activities. For associated symptoms, patient reportsno dizziness,no lightheadedness,no chest pain,no shortness of breath,no palpitations,no edema,no calf muscle cramps,no blurred vision,no confusion,no headaches, andno fatigue. Care Management - AsthmaReported by PatientHPIFor severity, patient reportsimproving,does not interfere with daily activities,does not disturb sleep, anddoes not cause nighttime awakening. For associated symptoms, patient reportsno fever,no fatigue,no irritability,no cough,normal appetite, andno change in productivity. Care Management - HyperlipidemiaReported by PatientIFor control, patient reportsusually well controlled,improving, andat goal. For complications, patient reportsno coronary artery disease,no heart attack,no cardiovascular disease,no pancreatitis, andno stroke.ROS as noted in the HPI here for rechk of dm and bp etc Gary Booker, [address] [place], [address], [facility] [place] [facility] 06/02/2025 09:22:00 08/13/20 25 text/htm l Care Management - Coronary Artery Disease (CAD)Reported [...] change in productivity. Gary Booker, DO [address] [facility], [place], [address], [facility] [place] [facility] 08/13/2025 14:45:22 OBGyn Episode No OBEpisode recorded.
--- OUTSIDE RECORDS SUMMARY | 2025-10-05 07:47 | XMS_ITS | Encounter Summary ---
Author Organization [facility] Address [address] [place] [address] Phone Care Team Providers Care Former Hand Name Role Phone Jan Kapoor MD Primary Care Provide r Chrissy Best DO Primary Care Provider [phone] Gary Yu DO Primary Care Provider Chrissy Best DO Unavailable [phone] Encounter Details Date Type Department Care Team (Late st Contact Info) Description 04/08/2018 Ancillary Orders Virtual Department [address] [place] [address] Geovanny Pollock MD [address] [place] [address], [address] [address] [email or web address] Calculus of kidney Social History Tobacco Use [...] 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 Not on file Not on file documented as of this encounter Plan of Treatment Not on file documented as of this encounter Visit Diagnoses Diagnosis Calculus of kidney documented in this encounter Additional Health Concerns Assessment Noted Time PHQ-2 Depression Total Score: 2 12/13/19 18 1:44 PM EST documented as of this encounter Care Teams Former Hand Relationship Specialty Start Date End Date Jan Kapoor MD [email or web address] PCP - General 08/08/17 09/08/18 Chrissy Best DO [address] [place] [address] [email or web address] PCP - General Family Medicine 09/09/18 05/25/20 Gary Yu DO [address] [place] [address] [email or web address] PCP - General Internal Medicine 05/26/20 Chrissy Best DO [address] [place] [address] [email or web address] Insurance Assigned Provider 07/30/20 09/25/20 documented as of this encounter Additional Source Comments The information contained in this document represents components of the legal health record. It is not the complete legal health record.[facility]
--- OUTSIDE RECORDS SUMMARY | 2025-10-05 07:47 | XMS_ITS | Clinical Summary ---
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 Not on file Not [...] FOBT 2000 SIGMOIDOSCOPY 2000 VIRTUAL COLONOSCOPY 2000 RSV VACCINE (1 - Risk 50-74 years 1-dose series) 2005 ZOSTER VACCINES (1 of 2) 2005 MAMMOGRAM 08/08/2013 08/08/2011 URINE MICROALBUMIN/CREATININE RATIO 12/13/2017 DEPRESSION SCREENING 12/13/2018 12/13/2017 DIABETIC EYE EXAM 12/09/2019 12/09/2018 OSTEOPOROSIS SCREENING INITIAL (ONE-TIME) 2020 LIPID PANEL 08/15/2021 08/15/2020, 12/18/2017 HEMOGLOBIN A1C 01/07/2022 07/10/2021, 0605/2021, 01/04/2021, Additional history exists BLOOD PRESSURE 07/24/2023 01/22/2023 Adult Td,Tdap Booster 11/05/2024 11/05/2014, 006 INFLUENZA VACCINE (#1) 2025 11/13/2012, 2011 COVID-19 VACCINE ( - 2024- season) 2025 SMOKING STATUS SCREENING (Once After [...] HEMOGLOBIN A1C 6.7(H) 4.3 - 5.8 % [facility] Blood 07/10/2021 9:26 AM EDT 07/10/2021 12:44 PM EDT Kamila LIGHT LAB BLOOD BKR ORDERABLES Fi nal Result [address] [address] * (ABNORMAL) Lipid panel (08/15/2020 9:17 AM EDT) HDL 40 mg/dL [facility] Comment: Interpretation <40 mg/dL: Low HDL cholesterol (major risk factor for CHD) Greater than or equal to 60 mg/dL: High HDL cholesterol ( negative risk factor for CHD) HDL - cholesterol is affected by a number of factors, e.g. smoking, excerise, hormones, sex and age. CHOLESTEROL 241(H) 0 - 240 mg/dL [facility] TRIGLYCERIDES 247(H) 30 - 160 mg/dL [facility] LDL 152(H) 50 - 129 mg/dL [facility] Comment: LDL levels in terms of risk for coronary heart disease: <100 mg/dL: Optimal 100-129 mg/dL: Near or above optimal 130-159 mg/dL: Borderline high 160-189 mg/dL: High >190 mg/dL: Very High CARDIAC RISK RATIO 6.0(H) 3.3 - 4.4 [facility] Blood 08/15/2020 9:17 AM EDT 08/15/2020 9:21 AM EDT us Kamila LIGHT LAB BLOOD BKR ORDERABLES Fi nal Result [facility] [address] [place] [address] * DIABETES EYE EXAM FOR RESULT ENTRY ONLY (12/09/2018) us Historical Provider HEALTH MAINTENANCE Edited Result - Final from Last 3 Months or Most Recently Relevant to Health Maintenance Insurance MEDICARE PART A & B [employer] SUPPLEMENT MEDICARE PART A & B [place] MED[employer] SUPPLEMENT MEDICARE PART A & B [place] MED[employer] SUPPLEMENT MEDICARE PART A & B [facility] MEDEX SUPPLEMENT MEDICARE PART A & B [place] [employer] MEDEX SUPPLEMENT MEDICARE PART A & B [place] [employer] MED[employer] SUPPLEMENT MEDICARE PART A & B [place] MED[employer] SUPPLEMENT MEDICARE PART A & B [place] [employer] SUPPLEMENT MEDICARE PART A & B [place] MEDEX SUPPLEMENT Care Teams Claims Adjuster Crop Relationship Specialty Start Date End Date Gary Yu DO PCP - General Internal Medicine 05/26/20 Additional Source Comments The information contained in this document represents components of the legal health record. It is not the complete legal health record.[facility]
[2025-10-05 13:39] LABS: MANUAL DIFF FLAG NO
[2025-10-05 13:48] LABS: Hematocrit 41.9 % (37.0-47.0); Hemoglobin 13.5 g/dl (12.0-16.0); Imm Gran Abs Auto 0.02 X10*3/uL (0.00-0.03); Imm Gran Pct Auto 0.4 % (0.0-0.4); Lymphocytes Absolute Auto 1.7 X10*3/uL (1.2-4.9); Mean Corpuscular HGB Conc 32.2 g/dl (31.0-35.0); Mean Corpuscular Hemoglobin 29.3 pg (27.0-33.0); Mean Corpuscular Volume 91.1 fL (80.0-98.0); NRBC Abs Auto 0.000 X10*3/uL (0.0-0.012); NRBC Pct Auto 0.0 /100WBC (0.0-0.2); Platelet Count 171 X10*3/uL (160-400); Red Blood Count 4.60 X10*6/uL (4.20-5.50); White Blood Count 4.8 X10*3/uL (4.8-10.8)
[2025-10-05 14:19] LABS: Microalbum/Creatinine Ratio Ur 50.3 ug/mg cr (<30)
[2025-10-05 15:30] LABS: Alanine Aminotransferase 23 U/L (0-31); Albumin Level 4.1 g/dL (3.5-5.0); Alkaline Phosphatase 51 U/L (39-117); Anion Gap 12 (12-20); Aspartate Amino Transferase 21 U/L (5-31); Blood Urea Nitrogen 18 mg/dL (9-16); Calcium 8.9 mg/dL (8.4-10.2); Carbon Dioxide 26 mmol/L (22-29); Chloride 107 mmol/L (96-108); Cholesterol 268 mg/dL (<200); Estimated Glomerular Filt Rate 50; HDL Cholesterol 39 mg/dL (>40); Potassium 4.7 mmol/L (3.3-5.1); Sodium 140 mmol/L (135-145); Total Protein 6.9 g/dL (6.5-8.0); Triglycerides 236 mg/dL (<150)
== END 2025-10-05 07:43 | disposition home or self-care (01) ==
LOC: HO.MANLDS 07:42
PROVIDERS: Visit Provider Internal Medicine
DX: E11.9 Type 2 diabetes mellitus without complications (principal)
CPT/HCPCS: 36415; 80053; 80061; 82043; 82570; 83036; 85025

== ENCOUNTER 2025-10-19 10:06 | Outpatient (AMB) | payer MEDICARE, SELFPAY ==
[2025-10-19 10:21] VITALS: BP 148/62; PULSE 72; BMI 32.8
--- NOTE | 2025-10-19 10:21 | MHC.OFFVIS ---
Vital Signs 10/19/25 10:21 Height 5 ft 4 in Weight 190 lb 14.725 oz BMI 32.8 BP 148/62 H Blood Pressure Location Lt brachial Position Sitting Pulse 72 Pulse Source Pulse Oximeter Intake Visit Reasons: 3 mth fu Chair Post Machine Operator Required: No Allergies ezetimibe (From Zetia) Allergy (Severe, Verified 10/19/25 10:23) edema Sulfa (Sulfonamide Antibiotics) Allergy (Verified 10/19/25 10:23) Unknown Wxjrxmp-TLX-YfC Reductase Inhibitor Adverse Reaction (Severe, Verified 10/19/25 10:23) edema metformin Adverse Reaction (Intermediate, Verified 10/19/25 10:23) Diarrhea Medication List - Last Reconciled 10/19/25 by MAGGIE Bui albuterol sulfate 90 mcg/actuation (Ventolin HFA) 2 puffs inhalation Q4H PRN aspirin 81 mg PO DAILY empagliflozin (Jardiance) 10 mg PO DAILY glipizide 10 mg PO DAILY metoprolol succinate ER 25 mg PO DAILY montelukast (Singulair) 10 mg PO DAILY nitroglycerin 0.4 mg sublingual Q5M PRN sitagliptin phosphate (Januvia) 50 mg PO DAILY ticagrelor 90 mg PO BID HPI HPI 3 mth fu: Details: Skylar is a 70-year-old female with past medical history of obesity, hypertension, hyperlipidemia, diabetes who presented to [facility] 06/2025 with chest discomfort and ruled in for NSTEMI. She was transferred to [facility] and underwent cardiac catheterization showing left circumflex 95% stenosis and LAUREANO was placed. She now presents for follow-up. Today she reports that she had 1 episode of very brief discomfort in her chest lasting sec, since her last visit. She has been attending cardiac rehab and does not get chest discomfort with exertional activities. She has history of asthma and states that it is recently exacerbated by the ríos Stoves and animals at her children's homes for the holidays. No lightheadedness, presyncope, syncope. Taking all meds as directed. Has been under high stress in her home. Her daughter, grandchild and great grandchild live with her. She has been doing only light activities and taking all meds as directed. She is reporting some easy bruising. She is concerned about her cholesterol but is not interested in injections for cholesterol-lowering. [facility] Medical History (Updated 07/12/25 @ 10:50 by MAGGIE Bui) Asthma Hyperlipidemia Diabetes Surgical History History of cardiac cath History of dilatation and curettage Social History Alcohol intake: never Patient Tobacco Use Status: Never used Tobacco Review of Systems Const All systems reviewed & are unremarkable except as noted in HPI and below ENT Denies dizziness Card Denies chest pain, Denies chest pain at rest, Denies chest pain with activity, Denies rapid heart rate, Denies pedal edema, Denies edema, Denies leg edema, Denies lightheadedness, Denies palpitations, Denies dyspnea, Denies dyspnea on exertion and Denies orthopnea Resp Denies cough, Denies dyspnea and Denies dyspnea on exertion GI Denies hematochezia and Denies change in stool character Musc Denies abnormal gait, Denies limited range of motion, Denies muscle cramps, Denies muscle weakness, Denies numbness, Denies radiating pain into limb, Denies stiffness and Denies tingling Neuro Denies abnormal gait, Denies dizziness, Denies numbness and Denies tingling Endo Denies palpitations Physical Exam Vital Signs: Last Vital Signs Pulse 72 10/19/25 10:21 BP 148/62 H 10/19/25 10:21 BMI result Body Mass Index 32.8 Const General: cooperative, healthy appearing, comfortable and no acute distress Orientation/consciousness: patient oriented x3 Neck Neck: Yes normal visual inspection Resp Effort & Inspection: normal respiratory effort Auscultation: clear to auscultation bilaterally, no crackles, no rales, no rhonchi and no wheezes Cardio Rate: regular rate Rhythm: regular rhythm Heart sounds: S1 normal heart sound present, S2 normal heart sound present, no gallops, no murmurs and no rubs Neuro General: patient oriented x3 Extrem General: Yes normal to inspection and No no pedal edema Psych Appearance: grossly normal Mental Status: mental status grossly normal Speech and movement: Normal speech and movement present Assessment & Plan Assessment & Plan (1) Acute non-ST elevation myocardial infarction (NSTEMI): Code(s): I21.4 - Non-ST elevation (NSTEMI) myocardial infarction Category: Medical Plan: NSTEMI 06/26/2025. Cardiac catheterization 06/27/2025 showed mid circumflex 95% stenosis, LAUREANO was placed. Echocardiogram 06/27/2025 showed EF 73%, no regional wall motion abnormalities and grade 1 diastolic dysfunction. She was put on aspirin indefinitely, Brilinta uninterrupted for 1 year, metoprolol XL 25 mg daily. She has a history of statin and Zetia intolerance. We discussed PCSK9 inhibitor and she is not interested at this time. She is going to work on lifestyle modifications and then plan for repeat fasting lipid check. Continue cardiac rehab. Signs and symptoms of angina reviewed with her. Cardiology follow-up 4 months, sooner if needed. (2) CAD (coronary artery disease): Code(s): I25.10 - Atherosclerotic heart disease of [place] coronary artery without angina pectoris Category: Medical Plan: New diagnosis of coronary artery disease with NSTEMI as above. She has cardiac risk factors of obesity, hypertension, hyperlipidemia and diabetes. She needs risk factor modification. (3) Stented coronary artery: Comment: LAUREANO to the left circumflex 06/27/2025 Code(s): Z95.5 - Presence of coronary angioplasty implant and graft Category: Surgical (4) History of cardiac cath: Comment: 06/27/2025 lad and RCA minimal luminal irregularities, mid left circumflex 95% stenosis, LAUREANO placed. Code(s): Z98.890 - Other specified postprocedural states Category: Surgical Plan: Right radial catheterization site well healed (5) Hypertension: Code(s): I10 - Essential (primary) hypertension Category: Medical Plan: Blood pressure goal less than 130/80. Mildly elevated today but reports high stressors at home. Reviewed low-salt diet, activity as tolerated. Continue metoprolol. (6) Hyperlipidemia: Code(s): E78.5 - Hyperlipidemia, unspecified Category: Medical Plan: [place] LDL goal less than 70 in patient with diabetes and CAD. She has a history of statin and Zetia intolerance with severe myalgias. The importance of good cholesterol control reviewed with her. She declines PCSK9 inhibitor at this time. Plan I discussed with the patient that her heart condition appears to be stable at this time. We reviewed her single, brief episode of atypical chest discomfort, and I noted that it had resolved and not recurred. I explained that her mildly elevated blood pressure today is likely related to the significant family stress she is under. I advised her to continue cardiac rehab and her current medications, and we will ensure her daily aspirin is added back to her active medication list. We discussed that prolonged bleeding from minor cuts is an expected side effect of Brilinta. I recommended she avoid added salt and try to practice stress reduction techniques. I instructed her to contact us if she develops any new chest pain or shortness of breath. We will plan for a follow-up visit in four months, or sooner if needed. In response to her question, I told her I would find out the name of her assigned chimney sweeper and provide it to her. Patient Instructions: - Continue to take all of your medications as prescribed, including aspirin, Brilinta, metoprolol, and Jardiance. - Continue attending your cardiac rehab sessions. - Because you are on a blood thinner (Brilinta) and aspirin, you may notice that you bleed longer from a cut. Be careful to avoid injuries. - Try to find ways to reduce your stress, as this can affect your blood pressure. - Avoid adding extra salt to your food to help keep your blood pressure down. - Avoid things that you know will make your asthma worse, like walking in very cold air. - Call our office or get medical help if you have new or worsening chest pain or shortness of breath. - We will schedule your next follow-up appointment in about four months, but please call if you need to be seen sooner. Patient was informed and verbally consented to the use of an ambient scribe for clinic note documentation during this visit. Visit time spent on chart review, interview, assessment, orders, documentation. Coding Level of Care Code Est Pt Level 4 (67403) Add On Problem Visit Only Diagnoses Acute non-ST elevation myocardial infarction (NSTEMI) I21.4 CAD (coronary artery disease) I25.10 Stented coronary artery Z95.5 History of cardiac cath Z98.890 Hypertension I10 Hyperlipidemia E78.5 Time Spent (min) 28
--- OUTSIDE RECORDS SUMMARY | 2025-10-19 13:22 | XMS_ITS | Encounter Summary ---
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 Not on file Not on file documented as of this encounter Plan of Treatment Not on file documented as of this encounter Visit Diagnoses Diagnosis Breast screening- Primary Breast screening, unspecified documented in this encounter Additional Health Concerns Assessment Noted Time PHQ-2 Depression Total Score: 2 12/13/19 18 1:44 PM EST documented as of this encounter Care Teams Automatic Equipment Technician Relationship Specialty Start Date End Date Gary Yu DO [email or web address] PCP - General Internal Medicine 05/26/20 documented as of this encounter Additional Source Comments The information contained in this document represents components of the legal health record. It is not the complete legal health record.[facility]
--- OUTSIDE RECORDS SUMMARY | 2025-10-19 13:22 | XMS_ITS | Encounter Summary ---
Author Organization [facility] Address [address] [place] [address] Phone Care Team Providers Care Agile Tester Name Role Phone Jan Kapoor MD Primary Care Provide r Chrissy Best DO Primary Care Provider [phone] Gary Yu DO Primary Care Provider [phone] Chrissy Best DO Unavailable [phone] Encounter Details Date Type Department Care Team (Late st Contact Info) Description 12/18/2017 Transcribe Orders [address] [address] Jan Kapoor MD [address] [facility] 1 [place] [address] [email or web address] Social History Tobacco Use Types Packs/Day [...] documented as of this encounter Care Teams Agile Tester Relationship Specialty Start Date End Date Jan Kapoor MD [email or web address] PCP - General 08/08/17 09/08/18 Chrissy Best DO [address] [place] [address] [email or web address] PCP - General Family Medicine 09/09/18 05/25/20 Gary Yu DO [address] [place] [id number] [email or web address] PCP - General Internal Medicine 05/26/20 Chrissy Best DO [address] [place] [address] [email or web address] Insurance Assigned Provider 07/30/20 09/25/20 documented as of this encounter Additional Source Comments The information contained in this document represents components of the legal health record. It is not the complete legal health record.[facility]
--- OUTSIDE RECORDS SUMMARY | 2025-10-19 13:22 | XMS_ITS | Clinical Summary ---
Author Organization [facility] Address [address] [place] [address] Phone Care Team Providers Care Stone Dresser Name Role Phone Gary Yu DO Primary Care Provider [phone] Allergies No known active allergies Medications Trulicity [...] age to complete this topic Insurance MEDICARE [facility] Care Teams Stone Dresser Relationship Specialty Start Date End Date Gary Yu DO [address] [place] [address] PCP - General Internal Medicine 01/18/25
--- OUTSIDE RECORDS SUMMARY | 2025-10-19 13:22 | XMS_ITS | Clinical Summary ---
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 smoking, excerise, hormones, sex and age. CHOLESTEROL 241(H) 0 - 240 mg/dL [facility] TRIGLYCERIDES 247(H) 30 - 160 mg/dL [facility] LDL 152(H) 50 - 129 mg/dL [facility] Comment: LDL levels in terms of risk for coronary heart disease: <100 mg/dL: Optimal 100-129 mg/dL: Near or above optimal 130-159 mg/dL: Borderline high 160-189 mg/dL: High >190 mg/dL: Very High CARDIAC RISK RATIO 6.0(H) 3.3 - 4.4 C [facility] Blood 08/15/2020 9:17 AM EDT 08/15/2020 9:21 AM EDT us Kamila LIGHT LAB BLOOD BKR ORDERABLES Fi nal Result [facility] [address] [place] [address] * DIABETES EYE EXAM FOR RESULT ENTRY ONLY (12/09/2018) us Historical Provider HEALTH MAINTENANCE Edited Result - Final from Last 3 Months or Most Recently Relevant to Health Maintenance Insurance MEDICARE PART A & B [employer] SUPPLEMENT MEDICARE PART A & B [employer] MEDEX SUPPLEMENT MEDICARE PART A & B [employer] MEDEX SUPPLEMENT MEDICARE PART A & B [facility] MEDEX SUPPLEMENT MEDICARE PART A & B [employer] MEDEX SUPPLEMENT MEDICARE PART A & B [employer] SUPPLEMENT MEDICARE PART A & B [employer] MEDEX SUPPLEMENT MEDICARE PART A & B [employer] MEDEX SUPPLEMENT MEDICARE PART A & B [employer] MEDEX SUPPLEMENT Care Teams Ux Developer Designer Relationship Specialty Start Date End Date Gary Yu DO PCP - General Internal Medicine 05/26/20 Additional Source Comments The information contained in this document represents components of the legal health record. It is not the complete legal health record.[facility]
--- OUTSIDE RECORDS SUMMARY | 2025-10-19 13:22 | XMS_ITS | Encounter Summary ---
Author Organization [facility] Address [address] [place] [address] Phone Care Team Providers Care Inspection Supervisor Name Role Phone Jan Kapoor MD Primary Care Provide r Chrissy Best DO Primary Care Provider [phone] Gary Yu DO Primary Care Provider [phone] Chrissy Best DO Unavailable [phone] Encounter Details Date Type Department Care Team (Late st Contact Info) Description 04/08/2018 Ancillary Orders Virtual Department [address] [place] [address] Geovanny Pollock MD [address] [place] [address], [address] [address] [email or web address] Calculus of kidney Social History Tobacco Use [...] 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 Not on file Not on file documented as of this encounter Plan of Treatment Not on file documented as of this encounter Visit Diagnoses Diagnosis Calculus of kidney documented in this encounter Additional Health Concerns Assessment Noted Time PHQ-2 Depression Total Score: 2 12/13/19 18 1:44 PM EST documented as of this encounter Care Teams Inspection Supervisor Relationship Specialty Start Date End Date Jan Kapoor MD [email or web address] PCP - General 08/08/17 09/08/18 Chrissy Best DO [address] [place] [id number] [email or web address] PCP - General Family Medicine 09/09/18 05/25/20 Gary Yu DO [address] [place] [id number] [email or web address] PCP - General Internal Medicine 05/26/20 Chrissy Best DO [address] [place] [address] [email or web address] Insurance Assigned Provider 07/30/20 09/25/20 documented as of this encounter Additional Source Comments The information contained in this document represents components of the legal health record. It is not the complete legal health record.[facility]
== END 2025-10-19 10:57 | disposition home or self-care (01) ==
LOC: HO.HCS 10:07
PROVIDERS: PCP Internal Medicine; Visit Provider Nurse Practitioner Family
DX: I21.4 Non-ST elevation (NSTEMI) myocardial infarction (principal); I25.10 Atherosclerotic heart disease of native coronary artery without angina pectoris; Z95.5 Presence of coronary angioplasty implant and graft; Z98.890 Other specified postprocedural states; I10 Essential (primary) hypertension; E78.5 Hyperlipidemia, unspecified
CPT/HCPCS: 99214; G2211

== ENCOUNTER → 2025-10-19 10:06 | Outpatient (BNVA) | payer MEDICARE, SELFPAY | PROVIDERS: PCP Internal Medicine; Visit Provider Nurse Practitioner Family | DX: I21.4 Non-ST elevation (NSTEMI) myocardial infarction (principal); I25.10 Atherosclerotic heart disease of native coronary artery without angina pectoris; I10 Essential (primary) hypertension; E78.5 Hyperlipidemia, unspecified; Z98.890 Other specified postprocedural states; Z95.5 Presence of coronary angioplasty implant and graft | CPT/HCPCS: 99212 ==